=== PATIENT | male | born 1965 | race Caucasian/White ===

== ENCOUNTER 2024-12-17 14:38 | Emergency (ER) | payer OTHER, SELFPAY ==
--- NOTE | ~2024-12-17 | US_ITS ---
CLINICAL HISTORY: immobile, swelling hand, chronic shoulder fracture Left upper extremity venous duplex ultrasound Comparison: None Findings: The visualized deep veins are fully compressible with normal flow. The basilic vein was not able to be compressed due to patient immobility. Impression: No deep vein thrombosis. This document has been electronically signed by: Mirna Ross MD on 12/17/2024 18:35:31
--- NOTE | ~2024-12-17 | XR_ITS ---
CLINICAL HISTORY: swelling Radiographs of the left hand, 3 views Comparison: None Findings: No acute fracture or dislocation. 3 mm well corticated ossific fragment at the base of the 1st proximal phalanx, chronic appearing. No cortical destruction or periostitis to indicate osteomyelitis. Mild degenerative change. Bone mineralization is normal. Vascular calcifications.Soft tissue swelling. Impression: No acute osseous abnormality. Follow up if symptoms persist or worsen. This document has been electronically signed by: Mirna Ross MD on 12/17/2024 17:03:02
[2024-12-17 14:47] VITALS: BP 142/80; PULSE 88; O2SAT 98
[2024-12-17 14:49] VITALS: BP 170/93; PULSE 89; RESP 16; TEMP 36.3; O2SAT 98; BMI 19.4
--- NOTE | 2024-12-17 17:17 | ED.GENADULT ---
HPI - General Adult General Chief complaint: General Medical Stated complaint: From [facility], shoulder injury Time Seen by Provider: 12/17/24 16:01 Source: patient and EMS Mode of arrival: EMS Limitations: no limitations History of Present Illness ED Provider: Lia Castro NP HPI narrative: Patient is a 59-year-old male who presents emergency department via EMS coming from [facility]; [facility]. He states that he injured his left shoulder proximally 8 months ago resulting in fracture/dislocation for which he is awaiting surgical repair that is unfortunately not scheduled until January. He states that since this injury has been experiencing intermittent numbness and tingling to the arm. Yesterday he noticed swelling to his left hand and he brought it to the nurse's attention today. He states the nurse I discussed this with the nurse practitioner at the facility and advised that he be transported to emergency department for further evaluation. He has very limited motion to the arm due to his shoulder pain, he states it is primarily dependent. He is able to move the fingers of the hand and make a fist. He denies any pain to the hand. He denies any recent fevers or chills. He does not recall any apparent injury to the hand. Related Data Allergies Allergy/AdvReac Type Severity Reaction Status Date / Time No Known Allergies Allergy Verified 12/17/24 14:50 Review of Systems Review of Systems: Yes all other systems are reviewed and are negative PMFSH Past Medical History Attestation statement: The following information was validated with the patient. Source: old records reviewed Social History Social History Smoked in Last 30 Days: Yes Use of substances other than those prescribed or required for medical reasons: Yes Substance Use Type: Marijuana Substance Use Frequency: Occasionally Last Used Substance: Weeks (ago) Advance Directives: No Advance Directives Information Provided: Yes Do you have a plan to hurt others: No Plan Physical Exam ED Vital Signs: Vital Signs - 24 hr 12/17/24 14:49 Temperature 97.4 F Pulse Rate 89 Respiratory Rate 16 Blood Pressure 170/93 H Pulse Oximetry 98 Oxygen Delivery Method Room Air BMI result Body Mass Index 19.4 Appearance: Alert.?Oriented to person, place and time. No acute distress.?Normal affect. CVS: Heart sounds normal. Normal heart rate and rhythm.? Pulses normal.?? Respiratory: No respiratory distress.? Lung sounds clear to auscultation bilaterally?? Skin: Skin warm and dry.? Normal skin color.? Extremities: Left shoulder decreased AROM. Full passive range of motion to the left elbow. Full AROM to the left wrist/hand. Localized edema to the hand without erythema or warmth. 2+ radial pulse. Neuro: Moves all extremities spontaneously. Sensation intact bilaterally. Wheelchair-bound Medical Decision Making Medical Decision Making MDM Narrative: Patient is a 59 year old male presents emergency department for evaluation of localized swelling to the left hand that was 1st noticed yesterday in the setting of a chronic fracture/dislocation to the left shoulder over the past 8 months. Has had ongoing intermittent numbness. He does not recall any overt injury. He is primarily chair bound, the arm is kept in a dependent position. I suspect that some degree of the edema may be due to ongoing dependence, and for venous return. The extremity is neurovascularly intact distally. There is no erythema or warmth nor pain to suggest acute infection/septic joint. There was no further extremity edema, shortness of breath tachypnea or hypoxia to suggest CHF as an etiology. Not consistent with arterial occlusion. Will obtain XR to exclude fracture given the intermittent numbness there is some possibility there may have been an injury that he was not aware of, will also obtain venous duplex ultrasound to exclude DVT in the setting of immobility to the arm over the past 8 months. XR negative, venous duplex ultrasound negative. Suspect this is dependent edema, reviewed use of Babatunde bandage, elevation, close outpatient monitoring. Stable for [facility] to [facility] Differential Diagnosis Differential Diagnoses: The differential diagnosis associated with the presentation includes (See narrative above) Admission/Observation Consideration of admission/observation: Escalation of care including admission/observation considered (See narrative above) Independent Interpretation I performed an independent interpretation of an: Plain X-Ray (No acute fracture dislocation) Radiology Impression Discussion of test interpretation with radiology: I have reviewed the radiologist's reading. Radiologist Impression: Radiographs of the left hand, 3 views Comparison: None Findings: No acute fracture or dislocation. 3 mm well corticated ossific fragment at the base of the 1st proximal phalanx, chronic appearing. No cortical destruction or periostitis to indicate osteomyelitis. Mild degenerative change. Bone mineralization is normal. Vascular calcifications.Soft tissue swelling. Impression: No acute osseous abnormality. Follow up if symptoms persist or worsen. Left upper extremity venous duplex ultrasound Comparison: None Findings: The visualized deep veins are fully compressible with normal flow. The basilic vein was not able to be compressed due to patient immobility. Impression: No deep vein thrombosis. Independent Historian Clinical information obtained from an independent historian. History obtained from or confirmed by: EMS External Record Review External record reviewed: Outpatient record Discharge Plan Discharge Clinical Impression: Edema, peripheral Patient Disposition: er [facility] Transfer Details: [facility] Additional Instructions: Edema is likely dependent given primarily immobility of the arm. Babatunde bandage for compression, elevation above the level of the chest as best as possible, outpatient follow-up as scheduled for surgical procedure to the shoulder. X-ray today was without evidence of acute osseous abnormality. Venous duplex ultrasound without evidence of DVT. No redness warmth fevers chills to be concerning for acute infectious process. Referrals: Walt Lang MD [Primary Care Provider] - Print Language: Cook Islander
[2024-12-17 19:45] VITALS: BP 135/86; PULSE 91; RESP 16; TEMP 36.6; O2SAT 98
[2024-12-17 20:40] VITALS: BP 135/86; PULSE 91; RESP 16; TEMP 36.6; O2SAT 98
== END 2024-12-17 20:40 ==
PROVIDERS: Emergency Provider Emergency Medicine; PCP Family Medicine
DX: R60.0 Localized edema (principal)
CPT/HCPCS: 73120; 93971; 99284

== ENCOUNTER → 2024-12-17 16:25 | Outpatient (BNV) | payer OTHER, SELFPAY | PROVIDERS: Emergency Provider Emergency Medicine; PCP Family Medicine; Visit Provider Radiology Diagnostic Radiology | DX: R22.32 Localized swelling, mass and lump, left upper limb (principal); M62.3 Immobility syndrome (paraplegic) | CPT/HCPCS: 73120; 93971 ==

== ENCOUNTER 2025-10-03 16:07 | Inpatient (IN) | payer MEDICARE, MEDICAID, SELFPAY ==
[2025-10-03] VITALS (7 sets, daily range): BP systolic 152–198; BP diastolic 78–100; PULSE 81–86; RESP 16–18; TEMP 36.4–36.7; O2SAT 94–97; BMI 23.2; BMI 22.6
--- NOTE | ~2025-10-03 | US_ITS ---
CLINICAL HISTORY: edema Venous duplex ultrasound bilateral lower extremity Comparison: None provided Findings: The visualized deep veins are fully compressible with normal Doppler color flow and spectral tracings. No popliteal cyst. Right Gonzalez's cyst, 1.8 x 0.5 x 0.8 cm. Left Gonzalez's cyst, 5.1 x 1.4 x 2.6 cm. IMPRESSION: 1. Negative for bilateral lower extremity deep vein thrombosis. This document has been electronically signed by: Jesus Alberto Sargent MD on 10/03/2025 20:08:28
--- NOTE | ~2025-10-03 | XR_ITS ---
CLINICAL HISTORY: edema 2 view chest x-ray Comparison: None provided Findings: Blunting of the left costophrenic angle. Prominence of the pulmonary vasculature. Cardiomegaly. No acute fracture. Reverse left shoulder arthroplasty. IMPRESSION: 1. Small left pleural effusion. 2. CHF. 3. Prior reverse left shoulder arthroplasty. This document has been electronically signed by: Jesus Alberto Sargent MD on 10/03/2025 17:22:54
--- NOTE | 2025-10-03 16:26 | ECG_ITS ---
Test Reason : SWELLING Blood Pressure : */* mmHG Vent. Rate : 83 BPM Atrial Rate : 83 BPM P-R Int : 142 ms QRS Dur : 102 ms QT Int : 404 ms P-R-T Axes : 48 -20 162 degrees QTcB Int : 474 ms Normal sinus rhythm Minimal voltage criteria for LVH, may be normal variant ( Milaca product ) Nonspecific ST and T wave abnormality Prolonged QT Abnormal ECG No previous ECGs available Referred By: Generic ED Physician Electronically Signed By: ORACIO TRIMBLE
[2025-10-03 16:53] LABS: MANUAL DIFF FLAG NO
--- NOTE | 2025-10-03 16:56 | ED_ITS ---
HPI - General Adult General Chief complaint: General Medical Stated complaint: diff breathing Time Seen by Provider: 10/03/25 16:51 Source: patient, EMS and old records reviewed Mode of arrival: EMS Limitations: no limitations History of Present Illness ED Provider: DR. Alvares HPI narrative: 60-year-old [facility] [place] care brought in by EMS for increased difficulty breathing mostly when he lay supine at night and he required 2 put 2 pillows under his head, patient also noted swelling and edema in bilateral lower extremity, exertional shortness of breath, no chest pain, no weakness, no numbness. No fever, no chills, no cough. Related Data Allergies Allergy/AdvReac Type Severity Reaction Status Date / Time No Known Allergies Allergy Verified 10/03/25 16:20 Review of Systems 2 Review of Systems: all other systems are reviewed and are negative Constitutional: Reports as per HPI and Reports no additional constitutional complaints Eyes: Reports as per HPI and Reports no additional eye complaints Reports system reviewed and no additional complaints, except as documented Cardiovascular: Reports as per HPI and Reports no additional cardiovascular complaints Respiratory: Reports as per HPI and Reports no additional respiratory complaints Gastrointestinal: Reports as per HPI and Reports no additional gastrointestinal complaints Genitourinary: Reports no additional female genitourinary complaints Musculoskeletal: Reports no additional musculoskeletal complaints Skin/Breast: Reports system reviewed and no additional complaints, except as docu Psychiatric: Reports no additional psychiatric complaints Endocrine: Reports no additional endocrine complaints Hematologic/Lymphatic: Reports no additional hematologic/lymphatic complaints Allergic/Immunologic: Reports no additional allergic/immunologic complaints Reports system reviewed and no additional complaints, except as documented and Reports Abnormal speech present [facility] Social History Social History Alcohol intake: never Smoked in Last 30 Days: Yes Use of substances other than those prescribed or required for medical reasons: No Substance Use Type: Marijuana Advance Directives: No Advance Directives Information Provided: No Physical Exam ED Vital Signs: Vital Signs - 24 hr 10/03/25 16:17 10/03/25 17:53 10/03/25 18:02 Temperature 98.0 F 97.8 F Pulse Rate 86 85 Respiratory Rate 18 18 Blood Pressure 182/97 H 181/85 H 181/85 H Pulse Oximetry 97 95 Oxygen Delivery Method Room Air Room Air BMI result Body Mass Index 23.2 Vital signs have been reviewed and appear to be correct. Blood pressure elevated. Heart rate normal. Respiratory rate normal. Temperature normal. Oxygen saturation normal. Appearance: Alert. Oriented X3. No acute distress. Head: Normal external exam. Normocephalic. Atraumatic. No Linder signs noted. No raccoon eyes noted Eyes: PERRLA. EOMI. Conjunctiva and sclera normal. Eyelids normal. ENT: TM's Normal. Pharynx normal. Uvula midline. Moist mucous membranes. No trismus noted. No drooling noted. No muffled voice noted. Neck: Normal inspection. Neck supple. FROM. No adenopathy. Thyroid Normal. No meningeal signs. No neck mass noted. CVS: Normal heart rate and rhythm, bilateral lower lung field rales. Respiratory: No respiratory distress. Painless inspiration. Breath sounds normal. No wheezes/rales/rhonchi noted. No accessory muscle usage noted or decreased air movement noted. Abdomen: Soft and nontender. Bowel sounds normal in all 4 quadrants. No distention noted. No organomegaly noted. No visible injury noted. Back: No CVA tenderness. Full range of motion noted. Skin: Skin warm and dry. Normal skin color. Normal skin turgor. No rashes/lesions/lacerations noted. Extremities: Plus two lower extremity edema. Extremities exhibit normal range of motion. Extremities nontender. Neuro: Oriented X 3. Cranial nerve exam: II-XII are grossly intact No motor deficit. No sensory deficit. Reflexes normal. Course Reevaluation(s) Reevaluation #1: 60-year-old male came in with CHF symptoms normally patient is not taking Lasix was given Lasix and nitro in the ED with some subjective improvement. Patient will need to be hospitalized for further diuresis and cardiology evaluation. Time: 18:17 Medications Administered Discontinued Medications Generic Name Dose Route Start Last Admin Trade Name Freq PRN Reason Stop Dose Admin Furosemide 40 mg 10/03/25 17:05 10/03/25 18:02 Furosemide 100 Mg/10 Ml Vial IVPUSH 10/03/25 17:06 40 mg ONCE ONE Administration Protocol Nitroglycerin 1 inch 10/03/25 17:05 10/03/25 17:59 Nitroglycerin 2 % Oint 1 Gm Packet TRANSDERMA 10/03/25 17:06 1 inch ONCE ONE Administration Medical Decision Making Differential Diagnosis Differential Diagnoses: The differential diagnosis associated with the presentation includes ( CHF, ACS, pneumonia, pneumothorax, pleural effusion, electrolyte derangement, severe anemia.) Admission/Observation Consideration of admission/observation: Escalation of care including admission/observation considered Consult Healthcare Provider Management of the patient was discussed with: Hospitalist ( Dr. Dacosta) Lab Data MDM Lab Attestation statement: I reviewed the patient's lab results. 10/03/25 16:45 10/03/25 16:45 Labs: Lab Results 10/03/25 Range/Units 16:45 WBC 5.9 (4.8-10.8) X10*3/uL RBC 4.07 L (4.60-5.80) X10*6/uL Hgb 12.2 L (14.0-18.0) g/dl Hct 37.3 L (42.0-52.0) % MCV 91.6 (80.0-98.0) fL MCH 30.0 (27.0-33.0) pg MCHC 32.7 (31.0-36.0) g/dl RDW 13.4 (11.0-16.0) % Plt Count 264 (160-400) X10*3/uL MPV 10.7 (9.4-12.4) fL Immature Gran % (Auto) 0.2 (0.0-0.4) % Neut % (Auto) 67.5 (45-73) % Lymph % (Auto) 19.9 L (20-40) % Glynn % (Auto) 7.9 (2-11) % Eos % (Auto) 3.5 (0-4) % Baso % (Auto) 1.0 (0-2) % Lymph # (Auto) 1.2 (1.2-4.9) X10*3/uL Glynn # (Auto) 0.5 (0.1-1.2) X10*3/uL Eos # (Auto) 0.2 (0.0-0.4) X10*3/uL Baso # (Auto) 0.1 (0.0-0.2) X10*3/uL Abs Immat Gran (auto) 0.01 (0.00-0.03) X10*3/uL Absolute Neuts (auto) 4.0 (2.0-8.3) x10*3/uL Absolute Nucleated RBC 0.000 (0.0-0.012) X10*3/uL Nucleated RBC % (auto) 0.0 (0.0-0.2) /100WBC Hold Blue Top SEE NOTE Sodium 141 (135-145) mmol/L Potassium 4.0 (3.3-5.1) mmol/L Chloride 110 H (96-108) mmol/L Carbon Dioxide 26 (22-29) mmol/L Anion Gap 9 L (12-20) BUN 15 (9-16) mg/dL Creatinine 0.76 (0.5-1.4) mg/dL Estim Creat Clear Calc 105.3 Estimated GFR > 60 Random Glucose 162 H (60-115) mg/dL Calcium 7.9 L (8.4-10.2) mg/dL Total Bilirubin 0.4 (0.0-1.0) mg/dL AST 30 (5-37) U/L ALT 9 (0-40) U/L Alkaline Phosphatase 144 H (39-117) U/L Troponin I High Sens 42.5 H (<3.5-35.0) ng/L NT-Pro-B Natriuret Pep 78639.2 H (<300) pg/mL Total Protein 4.9 L (6.5-8.0) g/dL Albumin 2.4 L (3.5-5.0) g/dL Independent Interpretation I performed an independent interpretation of an: Plain X-Ray ( chest: CHF.) Radiology Impression Discussion of test interpretation with radiology: I have reviewed the radiologist's reading. Critical Care Time Critical Care Time Critical Care Time: Yes Total Critical Care Time: 60 Attestation: The patient was critically ill with a high probability of imminent or life- threatening deterioration. I spent greater than 30 minutes of discontinuous time evaluating the patient, delivering critical care at the bedside, discussing evaluating data with consultants. Critical care time does not include time spent performing separately billable procedures or teaching. Time spent performing critical care was 60 minutes. Discharge Plan Discharge Clinical Impression: Congestive heart failure Patient Disposition: Admitted As Inpatient Print Language: Uzbek
--- OUTSIDE RECORDS SUMMARY | 2025-10-03 16:58 | XMS_ITS | Encounter Summary ---
Author Organization [facility] Address [address] [place] [address] Care Team Providers Care Vegetable Thinner Name Role Phone Ac Garcia MD Primary Care Provider Encounter Details Date Type Department Care Team (Late st Contact Info) Description 01/20/2025 Lab Requisition [facility] - Main Lab [address] [facility] [place] [address] Walt Lang MD [address] [place] [address] [address], [phone] Essential (primary) hypertension; Type 2 diabetes mellitus without complications (CMS/HCC V24, CMS/HCC V28) Social History Tobacco Use Types Packs/Day Years Used Date Smoking Tobacco: Never Assessed Sex and Gender Information Value Date Recorded Sex Assigned at Not on file Legal Sex Male 6:32 PM EST Gender Identity Not on file Sexual Orientation Not on file documented as of this encounter Plan of Treatment Not on file documented as of this encounter Visit Diagnoses Diagnosis Essential (primary) hypertension Unspecified essential hypertension Type 2 diabetes mellitus without complications (CMS/HCC V24, CMS/HCC V28) documented in this encounter Care Teams Vegetable Thinner Relationship Specialty Start Date End Date Ac Garcia MD [address] [place] [phone] PCP - General Internal Medicine 01/20/25 documented as of this encounter
--- OUTSIDE RECORDS SUMMARY | 2025-10-03 16:58 | XMS_ITS | Clinical Summary ---
Author Organization [facility] Address [address] [place] [address] Care Team Providers Care Maintenance Dispatcher Name Role Phone Ac Garcia MD Primary Care Provider Allergies No known active allergies Medications Medication Sig Dispensed Refills Start Date End Date Status ibuprofen (ADVIL,MOTRIN) 400 MG tablet Take 1 tablet (400 mg total) by mouth every 6 (six) hours as needed for pain. 30 tablet 0 04/12/2015 Active Insulin Pen Needle (Pen [place]) 30G X 5 MM MISC 1 Device by Does not apply route 2 (two) times a day after meals. 60 each 11 12/23/2023 Active Continuous Blood Gluc Professor In Family Studies (FreeStyle Niurka 2 [place]) KEVIN 1 each by Does not apply route daily. 1 each 0 02/26/2024 Active Continuous Glucose Sensor (FreeStyle Niurka 2 Sensor) MISC 1 patch by Subdermal route every 14 (fourteen) days. dX: E 11.9 4 each 10 05/02/2024 Active Active Problems Problem Noted Date Diagnosed Date Type 1 diabetes mellitus with diabetic polyneuro mariam 12/23/2023 Social History Tobacco Use Types Packs/Day Years Used Date Smoking Tobacco: Every Day Cigarettes 1 Alcohol Use Standard Drinks/Week Comments Yes 0 (1 standard drink = 0.6 oz pur e alcohol) beer a few times a week Sex and Gender Information Value Date Recorded Sex Assigned at Not on file Gender Identity Not on file Sexual Orientation Not on file Job Start Date Occupation Industry Not on file Not on file Not on file Last Filed Vital Signs Vital Sign Reading Time Taken Comments Blood Pressure 164/90 01/21/2024 12:04 PM EDT Pulse 98 01/21/2024 12:04 PM EDT Temperature 36.3 C (97.4 F) 12/23/2023 1:26 PM EST Respiratory Rate 16 04/12/2015 4:55 PM EDT Oxygen Saturation 99% 01/21/2024 12:04 PM EDT Inhaled Oxygen Concentration - - Weight 60.1 kg (132 lb 9.6 oz) 01/21/2024 12:04 PM EDT Height 177.8 cm (5' 10 ) 04/12/2015 2:29 PM EDT Body Mass Index 19.03 04/12/2015 2:29 PM EDT Plan of Treatment Health Maintenance Due Date Last Done Comments Hepatitis C Screening 1965 COVID-19 Vaccine (#1) 1965 Pneumococcal Vaccine (1 of 2 - PCV) 01/18/1970 Depression Screening 1976 Diabetes: Eye Exam (No Retinopathy) 01/18/1982 Diabetes: Foot Exam 01/18/1982 Diabetes: Microalbumin Test 01/18/1982 Preventative Health Evaluation 01/18/1982 DTap / Tdap / Td (1 - Tdap) 01/18/1983 Colon Cancer Screening (Colonoscopy) 01/18/2009 Shingrix-Zoster Vaccine (1 of 2) 01/18/2014 Hemoglobin A1C Due 07/23/2024 01/21/2024 Influenza Vaccine (#1) 2025 RSV Adult > 60+ Yrs or Pregn ant (1 - 1-dose 75+ series) 01/18/2039 Hepatitis B Vaccines Aged Out No long er eligible based on patient's age to complete this topic RSV Ped < 20 months Aged Out No longe r eligible based on patient's age to complete this topic Care Teams Maintenance Dispatcher Relationship Specialty Start Date End Date Ac Garcia MD PCP - General Family Medicine 12/23/23
--- OUTSIDE RECORDS SUMMARY | 2025-10-03 16:58 | XMS_ITS | Encounter Summary ---
Author Organization [facility] Address [address] [place] [address] Care Team Providers Care Hospice Music Therapist Name Role Phone Ac Garcia MD Primary Care Provider [phone] Encounter Details Date Type Department Care Team (Late st Contact Info) Description 09/23/2024 Lab Requisition [facility] - Main Lab [address] [facility] [place] [address] Walt Lang MD 38 [facility] [address] [place], [phone] Type 2 diabetes mellitus without complications (CMS/HCC [...] on file documented as of this encounter Procedures Procedure Name Priority Date/Time Associated Diagnosis Comments LIPID PANEL WITH REFLEX TO DIRECT LDL Routine 09/24/2024 6:37 AM EST Type 2 diabetes mellitus without complications (CMS/HCC) CBC WITH AUTO DIFFERENTIAL Routine 09/24/2024 6:37 AM EST Type 2 diabetes mellitus without complications (CMS/HCC) CBC AND DIFFERENTIAL Routine 09/24/2024 6:37 AM EST Type 2 diabetes mellitus without complications (CMS/HCC) HEMOGLOBIN A1C Routine 09/24/2024 6:37 AM EST Type 2 diabetes mellitus without complications (CMS/HCC) COMPREHENSIVE METABOLIC PANEL Routine 09/24/2024 6:37 AM EST Type 2 diabetes mellitus without complications (CMS/HCC) documented in this encounter Results * (ABNORMAL) CBC auto differential (09/24/2024 6:37 AM EST) WBC 6.3 4.8 - 10.8 K/mcL LAB HEMETOLOGY METHOD 09/24/2024 11:44 AM [facility] LAB RBC 3.80(L) 4.50 - 5.50 M/mcL LAB HEMETOLOGY METHOD 09/24/2024 11:44 AM [facility] LAB Hemoglobin 11.9(L) 13.5 - 17.5 g/dL LAB HEMETOLOGY METHOD 09/24/2024 11:44 AM [facility] LAB Hematocrit 36.3(L) 42.0 - 54.0 % LAB HEMETOLOGY METHOD 09/24/2024 11:44 AM [facility] LAB MCV 95.0 79.0 - 98.0 FL LAB HEMETOLOGY METHOD 09/24/2024 11:44 AM [facility] LAB MCH 31.2 27.0 - 32.0 pcg LAB HEMETOLOGY METHOD 09/24/2024 11:44 AM [facility] LAB MCHC 32.8 32.0 - 37.0 g/dL LAB HEMETOLOGY METHOD 09/24/2024 11:44 AM [facility] LAB RDW 14.5 11.0 - 15.0 % LAB HEMETOLOGY METHOD 09/24/2024 11:44 AM [facility] LAB Platelets 457(H) 130 - 400 K/mcL LAB HEMETOLOGY METHOD 09/24/2024 11:44 AM [facility] LAB MPV 10.2 7.0 - 11.0 FL LAB HEMETOLOGY METHOD 09/24/2024 11:44 AM [facility] LAB NRBC 0.0 <1.0 % LAB HEMETOLOGY METHOD 09/24/2024 11:44 AM [facility] LAB NRBC Absolute 0.00 <0.10 K/mcL LAB HEMETOLOGY METHOD 09/24/2024 11:44 AM [facility] Neutrophils Relative 66.7 % LAB HEMETOLOGY METHOD 09/24/2024 11:44 AM [facility] Lymphocytes Relative 14.9 % LAB HEMETOLOGY METHOD 09/24/2024 11:44 AM [facility] Monocytes Relative 12.6 % LAB HEMETOLOGY METHOD 09/24/2024 11:44 AM [facility] Eosinophils Relative 4.0 % LAB HEMETOLOGY METHOD 09/24/2024 11:44 AM [facility] Basophils Relative 1.3 % LAB HEMETOLOGY METHOD 09/24/2024 11:44 AM [facility] Immature Granulocytes Relative 0.5 % LAB HEMETOLOGY METHOD 09/24/2024 11:44 AM [facility] Neutrophils Absolute 4.17 1.50 - 7.00 K/mcL LAB HEMETOLOGY METHOD 09/24/2024 11:44 AM [facility] Lymphocytes Absolute 0.93(L) 1.00 - 5.00 K/mcL LAB HEMETOLOGY METHOD 09/24/2024 11:44 AM [facility] Monocytes Absolute 0.79 0.20 - 1.00 K/mcL LAB HEMETOLOGY METHOD 09/24/2024 11:44 AM [facility] Eosinophils Absolute 0.25 0.00 - 0.50 K/mcL LAB HEMETOLOGY METHOD 09/24/2024 11:44 AM [facility] Basophils Absolute 0.08 0.00 - 0.20 K/mcL LAB HEMETOLOGY METHOD 09/24/2024 11:44 AM EST [facility] Immature Granulocytes Absolute 0.03 0.00 - 0.03 K/mcL LAB HEMETOLOGY METHOD 09/24/2024 11:44 AM EST [facility] Blood Venous blood specimen / Unknown Venipuncture / Unknown 09/24/2024 6:37 AM EST 09/24/2024 10:28 AM EST Walt Lang MD LAB BLOOD ORDERABLES Final Resul t Performing Organization Address [facility]/ZIP Co de Phone Number [facility] [address] [place] [address], [place] [phone] * (ABNORMAL) Hemoglobin A1c (09/24/2024 6:37 AM EST) Hemoglobin A1C 7.7(H) <6.5 % LAB CHEMISTRY METHOD 09/24/2024 2:26 PM EST [facility] Mean Bld Glu Estim. 174 mg/dL LAB CHEMISTRY METHOD 09/24/2024 2:26 PM EST [facility] Blood Venous blood specimen / Unknown Venipuncture / Unknown 09/24/2024 6:37 AM EST 09/24/2024 10:28 AM EST us Walt Lang MD LAB BLOOD ORDERABLES Final Resul t Performing Organization Address [facility]/ZIP Co de Phone Number [facility] [address] [place] [address], [place] [phone] * (ABNORMAL) Lipid panel with reflex to direct LDL (09/24/2024 6:37 AM EST) Cholesterol 287(H) 0 - 200 mg/dL LAB CHEMISTRY METHOD 09/24/2024 12:46 PM EST [facility] Triglycerides 197(H) 0 - 150 mg/dL LAB CHEMISTRY METHOD 09/24/2024 12:46 PM EST [facility] HDL 56 >=40 mg/dL LAB CHEMISTRY METHOD 09/24/2024 12:46 PM [facility] LDL Calculated 192(H) 0 - 100 mg/dL LAB CHEMISTRY METHOD 09/24/2024 12:46 PM [facility] VLDL Cholesterol Patel 39.4 mg/dL LAB CHEMISTRY METHOD 09/24/2024 12:46 PM [facility] Non HDL Chol. (LDL+VLDL) 231(H) <145 mg/dL LAB CHEMISTRY METHOD 09/24/2024 12:46 PM [facility] Chol/HDL Ratio 5.1(H) 0.0 - 4.4 LAB CHEMISTRY METHOD 09/24/2024 12:46 PM [facility] Blood Venous blood specimen / Unknown Venipuncture / Unknown 09/24/2024 6:37 AM EST 09/24/2024 10:28 AM EST us Walt Lang MD LAB BLOOD ORDERABLES Final Resul t [facility] [address] [place] [address], [place] [phone] * (ABNORMAL) Comprehensive metabolic panel (09/24/2024 6:37 AM EST) Sodium 136 133 - 145 mmol/L LAB CHEMISTRY METHOD 09/24/2024 12:49 PM [facility] Potassium 4.1 3.5 - 5.5 mmol/L LAB CHEMISTRY METHOD 09/24/2024 12:49 PM [facility] Chloride 103 96 - 110 mmol/L LAB CHEMISTRY METHOD 09/24/2024 12:49 PM [facility] CO2 27 21 - 32 mmol/L LAB CHEMISTRY METHOD 09/24/2024 12:49 PM [facility] Anion Gap 6 3 - 11 LAB CHEMISTRY METHOD 09/24/2024 12:49 PM [facility] Glucose 239(H) 70 - 100 mg/dL LAB CHEMISTRY METHOD 09/24/2024 12:49 PM [facility] BUN 13 5 - 25 mg/dL LAB CHEMISTRY METHOD 09/24/2024 12:49 PM [facility] Creatinine 0.37(L) 0.70 - 1.30 mg/dL LAB CHEMISTRY METHOD 09/24/2024 12:49 PM [facility] LAB eGFR 128 >=60 mL/min/1. 73m2 LAB CHEMISTRY METHOD 09/24/2024 12:49 PM [facility] Comment:Calculation based on the Chronic Kidney Disease Epidemiology Collaboration (CKD-EPI) equation refit without adjustment for race. BUN/Creatinine Ratio 35.1 LAB CHEMISTRY METHOD 09/24/2024 12:49 PM [facility] Calcium 8.4(L) 8.5 - 10.5 mg/dL LAB CHEMISTRY METHOD 09/24/2024 12:49 PM [facility] AST (SGOT) 17 10 - 42 unit/L LAB CHEMISTRY METHOD 09/24/2024 12:49 PM [facility] ALT (SGPT) 21 10 - 60 unit/L LAB CHEMISTRY METHOD 09/24/2024 12:49 PM [facility] Alkaline Phosphatase 206(H) 42 - 121 unit/L LAB CHEMISTRY METHOD 09/24/2024 12:49 PM [facility] Total Protein 5.5(L) 6.0 - 8.0 g/dL LAB CHEMISTRY METHOD 09/24/2024 12:49 PM [facility] Albumin 2.3(L) 3.2 - 5.0 g/dL LAB CHEMISTRY METHOD 09/24/2024 12:49 PM [facility] Total Bilirubin 0.3 0.0 - 1.4 mg/dL LAB CHEMISTRY METHOD 09/24/2024 12:49 PM [facility] Blood Venous blood specimen / Unknown Venipuncture / Unknown 09/24/2024 6:37 AM EST 09/24/2024 10:28 AM EST us Walt Lang MD LAB BLOOD ORDERABLES Final Resul t [facility] ([facility] [address] [place] [address], [place] [phone] documented in this encounter Visit Diagnoses Diagnosis Type 2 diabetes mellitus without complications (CMS/HCC V24, CMS/HCC V28) documented in this encounter Care Teams Hospice Music Therapist Relationship Specialty Start Date End Date Ac Garcia MD [address] [place] [phone] PCP - General Internal Medicine 01/20/25 documented as of this encounter
--- OUTSIDE RECORDS SUMMARY | 2025-10-03 16:58 | XMS_ITS | Clinical Summary ---
Author Organization [address] Address [address] [place] [phone] Phone Care Team Providers Care Planning Rn Name Role Phone Ac Garcia MD Primary Care Provider [phone] Social History Tobacco Use Types Packs/Day Years Used Date Smoking Tobacco: Never Assessed Sex and Gender Information Value Date Recorded Sex Assigned at Not on file Legal Sex Male 6:32 PM EST Gender Identity Not on file Sexual Orientation Not on file Last Filed Vital Signs Vital Sign Reading Time Taken Comments Blood Pressure 164/90 01/21/2024 12:04 PM EDT Pulse 98 01/21/2024 12:04 PM EDT Temperature - - Respiratory Rate - - Oxygen Saturation - - Inhaled Oxygen Concentration - - Weight 60.1 kg (132 lb 9.6 oz) 01/21/2024 12:04 PM EDT Height - - Body Mass Index - - Plan of Treatment Health Maintenance Due Date Last Done Comments Colorectal Cancer Screening: Colonoscopy 1965 Diabetes: Annual Foot Exam 01/18/1974 Diabetes: Annual Retina Eye Exam 01/18/1974 Pneumococcal Vaccine: 50+ Ye ars (1 of 2 - PCV) 01/18/1983 RSV Immunization Adult Patie nts (1 - Risk 50-74 years 1-dose series) 01/18/2014 Zoster Vaccines (1 of 2) 01/18/2014 Diabetes: Annual Urine Albumin-Creatinine Ratio (uACR) 06/10/2024 HIV Screening 06/10/2024 Hepatitis C Screening 06/10/2024 Social Influencers of Health Screening 06/10/2024 Depression Screening 11/12/2024 Diabetes: Blood Sugar Contro l Test (HGBA1C) 03/24/2025 09/24/2024 COVID-19 Vaccine (2024-2 6 season) 2025 Influenza Vaccine (#1) 2025 Diabetes: Annual GFR (Glomer ular Filtration Rate) 09/24/2025 09/24/2024 Hypertension/CHF/CAD Annual BMP Blood Test 09/24/2025 09/24/2024 Cholesterol Screening (Lipid Panel) 09/24/2029 09/24/2024 DTaP,Tdap,and Td Vaccines (2 - Td or Tdap) 05/26/2034 05/26/2024 HIB Vaccines Aged Out No longer eligi ble based on patient's age to complete this topic HPV Vaccines Aged Out No longer eligi ble based on patient's age to complete this topic Hepatitis A Vaccines Aged Out No long er eligible based on patient's age to complete this topic Hepatitis B Vaccines Aged Out No long er eligible based on patient's age to complete this topic IPV Vaccines Aged Out No longer eligi ble based on patient's age to complete this topic MMR Vaccines Aged Out No longer eligi ble based on patient's age to complete this topic Meningococcal ACWY Vaccine Aged Out N o longer eligible based on patient's age to complete this topic Meningococcal B Vaccine Aged Out No l onger eligible based on patient's age to complete this topic RSV Immunization Patients Un mary 20 months Aged Out No longer eligible b ased on patient's age to complete this topic Varicella Vaccines Aged Out No longer eligible based on patient's age to complete this topic Procedures Procedure Name Priority Date/Time Associated Diagnosis Comments COMPREHENSIVE METABOLIC PANEL Routine 09/24/2024 6:37 AM EST Type 2 diabetes mellitus without complications (CMS/HCC) HEMOGLOBIN A1C Routine 09/24/2024 6:37 AM EST Type 2 diabetes mellitus without complications (CMS/HCC) LIPID PANEL WITH REFLEX TO DIRECT LDL Routine 09/24/2024 6:37 AM EST Type 2 diabetes mellitus without complications (CMS/HCC) from Last 3 Months or Most Recently Relevant to Health Maintenance Results * (ABNORMAL) Lipid panel with reflex to direct LDL (09/24/2024 6:37 AM EST) Cholesterol 287(H) 0 - 200 mg/dL LAB CHEMISTRY METHOD 09/24/2024 12:46 PM [facility] Triglycerides 197(H) 0 - 150 mg/dL LAB CHEMISTRY METHOD 09/24/2024 12:46 PM EST [facility] HDL 56 >=40 mg/dL LAB CHEMISTRY METHOD 09/24/2024 12:46 PM [facility] LDL Calculated 192(H) 0 - 100 mg/dL LAB CHEMISTRY METHOD 09/24/2024 12:46 PM [facility] VLDL Cholesterol Patel 39.4 mg/dL LAB CHEMISTRY METHOD 09/24/2024 12:46 PM [facility] Non HDL Chol. (LDL+VLDL) 231(H) <145 mg/dL LAB CHEMISTRY METHOD 09/24/2024 12:46 PM [facility] Chol/HDL Ratio 5.1(H) 0.0 - 4.4 LAB CHEMISTRY METHOD 09/24/2024 12:46 PM [facility] Blood Venous blood specimen / Unknown Venipuncture / Unknown 09/24/2024 6:37 AM EST 09/24/2024 10:28 AM EST us Walt Lang MD LAB BLOOD ORDERABLES Final Resul t [facility] [address] [place] [address], * (ABNORMAL) Hemoglobin A1c (09/24/2024 6:37 AM EST) Hemoglobin A1C 7.7(H) <6.5 % LAB CHEMISTRY METHOD 09/24/2024 2:26 PM EST [facility] Mean Bld Glu Estim. 174 mg/dL LAB CHEMISTRY METHOD 09/24/2024 2:26 PM [facility] Blood Venous blood specimen / Unknown Venipuncture / Unknown 09/24/2024 6:37 AM EST 09/24/2024 10:28 AM EST us Walt Lang MD LAB BLOOD ORDERABLES Final Resul t [facility] [address] [place] [address], * (ABNORMAL) Comprehensive metabolic panel (09/24/2024 6:37 AM EST) Sodium 136 133 - 145 mmol/L LAB CHEMISTRY METHOD 09/24/2024 12:49 PM [facility] Potassium 4.1 3.5 - 5.5 mmol/L LAB CHEMISTRY METHOD 09/24/2024 12:49 PM [facility] Chloride 103 96 - 110 mmol/L LAB CHEMISTRY METHOD 09/24/2024 12:49 PM [facility] CO2 27 21 - 32 mmol/L LAB CHEMISTRY METHOD 09/24/2024 12:49 PM [facility] Anion Gap 6 3 - 11 LAB CHEMISTRY METHOD 09/24/2024 12:49 PM [facility] Glucose 239(H) 70 - 100 mg/dL LAB CHEMISTRY METHOD 09/24/2024 12:49 PM [facility] BUN 13 5 - 25 mg/dL LAB CHEMISTRY METHOD 09/24/2024 12:49 PM [facility] Creatinine 0.37(L) 0.70 - 1.30 mg/dL LAB CHEMISTRY METHOD 09/24/2024 12:49 PM [facility] eGFR 128 >=60 mL/min/1. 73m2 LAB CHEMISTRY METHOD 09/24/2024 12:49 PM [facility] Comment:Calculation based on the Chronic Kidney Disease Epidemiology Collaboration (CKD-EPI) equation refit without adjustment for race. BUN/Creatinine Ratio 35.1 LAB CHEMISTRY METHOD 09/24/2024 12:49 PM [facility] Calcium 8.4(L) 8.5 - 10.5 mg/dL LAB CHEMISTRY METHOD 09/24/2024 12:49 PM [facility] AST (SGOT) 17 10 - 42 unit/L LAB CHEMISTRY METHOD 09/24/2024 12:49 PM [facility] ALT (SGPT) 21 10 - 60 unit/L LAB CHEMISTRY METHOD 09/24/2024 12:49 PM [facility] Alkaline Phosphatase 206(H) 42 - 121 unit/L LAB CHEMISTRY METHOD 09/24/2024 12:49 PM [facility] Total Protein 5.5(L) 6.0 - 8.0 g/dL LAB CHEMISTRY METHOD 09/24/2024 12:49 PM [facility] Albumin 2.3(L) 3.2 - 5.0 g/dL LAB CHEMISTRY METHOD 09/24/2024 12:49 PM [facility] Total Bilirubin 0.3 0.0 - 1.4 mg/dL LAB CHEMISTRY METHOD 09/24/2024 12:49 PM [facility] Blood Venous blood specimen / Unknown Venipuncture / Unknown 09/24/2024 6:37 AM EST 09/24/2024 10:28 AM EST us Walt Lang MD LAB BLOOD ORDERABLES Final Resul t [facility] [address] [place] [address], from Last 3 Months or Most Recently Relevant to Health Maintenance Insurance [facility] [place] [phone] [place] Care Teams Planning Rn Relationship Specialty Start Date End Date Ac Garcia MD [address] [place] [phone] PCP - General Internal Medicine 01/20/25
[2025-10-03 17:00] LABS: Hematocrit 37.3 % (42.0-52.0); Hemoglobin 12.2 g/dl (14.0-18.0); Imm Gran Abs Auto 0.01 X10*3/uL (0.00-0.03); Imm Gran Pct Auto 0.2 % (0.0-0.4); Lymphocytes Absolute Auto 1.2 X10*3/uL (1.2-4.9); Mean Corpuscular HGB Conc 32.7 g/dl (31.0-36.0); Mean Corpuscular Hemoglobin 30.0 pg (27.0-33.0); Mean Corpuscular Volume 91.6 fL (80.0-98.0); NRBC Abs Auto 0.000 X10*3/uL (0.0-0.012); NRBC Pct Auto 0.0 /100WBC (0.0-0.2); Platelet Count 264 X10*3/uL (160-400); Red Blood Count 4.07 X10*6/uL (4.60-5.80); White Blood Count 5.9 X10*3/uL (4.8-10.8)
[2025-10-03 17:41] LABS: Alanine Aminotransferase 9 U/L (0-40); Albumin Level 2.4 g/dL (3.5-5.0); Alkaline Phosphatase 144 U/L (39-117); Anion Gap 9 (12-20); Aspartate Amino Transferase 30 U/L (5-37); Blood Urea Nitrogen 15 mg/dL (9-16); Calcium 7.9 mg/dL (8.4-10.2); Carbon Dioxide 26 mmol/L (22-29); Chloride 110 mmol/L (96-108); Creatinine Clr Calc Pharmacy 105.3; Estimated Glomerular Filt Rate > 60; Potassium 4.0 mmol/L (3.3-5.1); Sodium 141 mmol/L (135-145); Total Protein 4.9 g/dL (6.5-8.0); Troponin-I High Sensitivity 42.5 ng/L (<3.5-35.0)
[2025-10-03] MEDS: Nitroglycerin 2 % Oint 1 GM Packet 1 INCH TRANSDERMA (17:59)
[2025-10-03] MEDS: Furosemide 100 MG/10 ML VIAL 40 MG IVPUSH ×2 (18:02→18:59)
[2025-10-03 18:28] LABS: Resp Syncy Virus RNA Qual PCR NEGATIVE (Negative); SARS COV2 PCR INHOUSE NEGATIVE (Negative)
--- NOTE | 2025-10-03 18:34 | PC.NURSE ---
Pt continues to deny CP and headache following meds. Is aware of plan for admission.
--- NOTE | 2025-10-03 18:47 | PM.IMHP ---
History of Present Illness Date of Service: 10/03/25 Chief Complaint: Shortness of breath and edema 60-year-old male with past medical history significant for heart failure, who presented to the hospital complaining of worsening shortness of breath and edema has been going on for the past week, patient had a group home facility, mentioned that he requires to use pillows to avoid getting shortness of breath. Patient also mentions ascending lower extremity edema. Patient states that he was previously seen by her doctor, however did not take medications prescribed to him for his heart disease. In the ED chest x-ray with CHF and small left pleural effusion, on labs proBNP 33876. Patient admitted for heart failure exacerbation. Review of Systems Review of Systems: Yes all other systems are reviewed and are negative [facility] Social History Alcohol intake: never Smoked in Last 30 Days: Yes Use of substances other than those prescribed or required for medical reasons: No Substance Use Type: Marijuana Advance Directives: No Advance Directives Information Provided: No Meds Allergies Allergy/AdvReac Type Severity Reaction Status Date / Time No Known Allergies Allergy Verified 10/03/25 16:20 Active Medications: Current Medications Acetaminophen (Acetaminophen 325 Mg Tablet) 650 mg PO Q6H PRN PRN Reason: Pain, Mild 1-3,fever,headache Calcium Carbonate (Calcium Carbonate 750 Mg Tab.Chew) 750 mg PO Q4H PRN PRN Reason: Heartburn Furosemide (Furosemide 100 Mg/10 Ml Vial) 100 mg IVPUSH BID SO; Protocol Heparin Sodium (Porcine) (Heparin Sodium,Porcine 5,000 Unit/Ml Vial) 5,000 unit SUBCUT Q12H [facility] Magnesium Hydroxide (Milk Of Magnesia 30 Ml Oral.Susp) 30 ml PO DAILY PRN PRN Reason: Constipation Melatonin (Melatonin 3 Mg Tablet) 6 mg PO BEDTIME PRN PRN Reason: Insomnia Ondansetron HCl (Ondansetron Hcl 4 Mg/2 Ml Vial) 4 mg IVPUSH Q8H PRN PRN Reason: Nausea and Vomiting Sodium Chloride (0.9 % Sodium Chloride Flush 3 Ml Syringe) 3 ml IVFLUSH QSHIFT SO Physical Exam Vital Signs and Narrative: Vital Signs: Last Vital Signs Temp 97.8 F 10/03/25 17:53 Pulse 82 10/03/25 18:30 Resp 18 10/03/25 18:30 BP 189/99 H 10/03/25 18:30 Pulse Ox 94 10/03/25 18:30 O2 Del Method Room Air 10/03/25 18:30 BMI result Body Mass Index 23.2 General: AxOx3, No acute distress Head: AT/NC ENT: Moist mucous membranes Neck: supple CVS; RRR, S1 S2 normal Lungs: Bilateral rales Abd: Soft non tender, non distended Ext: No edema and no calf tenderness MSK: moving all 4 limbs Skin: Sacral edema and lower extremity edema Psych: Cooperative with exam Neurology: no focal deficit Results Labs 10/03/25 16:45 10/03/25 16:45 Labs: Laboratory Results - last 24 hr 10/03/25 16:45 MCV 91.6 MCH 30.0 MCHC 32.7 RDW 13.4 Plt Count 264 MPV 10.7 Immature Gran % (Auto) 0.2 Neut % (Auto) 67.5 Lymph % (Auto) 19.9 L [place] % (Auto) 7.9 Eos % (Auto) 3.5 Baso % (Auto) 1.0 Lymph # (Auto) 1.2 [place] # (Auto) 0.5 Eos # (Auto) 0.2 Baso # (Auto) 0.1 Abs Immat Gran (auto) 0.01 Absolute Neuts (auto) 4.0 Absolute Nucleated RBC 0.000 Nucleated RBC % (auto) 0.0 Hold Blue Top SEE NOTE Anion Gap 9 L Estim Creat Clear Calc 105.3 Estimated GFR > 60 Random Glucose 162 H Calcium 7.9 L Total Bilirubin 0.4 AST 30 ALT 9 Alkaline Phosphatase 144 H Troponin I High Sens 42.5 H NT-Pro-B Natriuret Pep 97220.2 H Total Protein 4.9 L Albumin 2.4 L Influenza Type A (PCR) NEGATIVE Influenza Type B (PCR) NEGATIVE RSV RNA Qual (PCR) NEGATIVE SARS-CoV-2 RNA (RT-PCR) NEGATIVE Assessment and Plan (1) Congestive heart failure: Qualifiers: Heart failure type: systolic Status: Acute Plan Assessment: 60-year-old male who presented to hospital complaining of worsening shortness of breath and edema, with proBNP [id number], chest x-ray consistent with heart failure. CHF exacerbation, suspect medical noncompliance Suspect heart failure with reduced ejection fraction -proBNP on admission 25,183 -chest x-ray consistent with heart failure -status post 40 mg of IV Lasix and nitro given in the ED, we will give additional 40 at this time, tomorrow we will initiate 80 mg IV b.i.d. -TSH and A1c ordered -TTE ordered and pending -we will order bilateral lower extremity to rule out DVT -cardiology consulted -telemetry ordered -we will monitor for any signs of hypoxia, if needed to consider BiPAP Hypertension, chronic -at this time we will continue with IV Lasix, we will closely monitor initiate medications accordingly FEN: NI, replete as needed, cardiac GI PPx: Not indicated DVT PPx: Heparin and SCDs Code Status: Full Code Awaiting med rec Disposition: All questions and concerns with the patient were answered to satisfaction. All pertinent clinical documents, images and labs were reviewed. DISCLAIMER: This document was created using voice recognition software. Any mistakes in the prescription are unintentional. An attempt was made to focus for accuracy, but to expedite availability, some errors may persist. Please contact with any need for correction or further clarification Total time managing care of this patient today: 55 minutes. Quality Stroke Does the patient have a stroke diagnosis?: No VTE Prior VTE?: No VTE Risk Level:: Medical - moderate - high VTE Device Contraindication: N/A - Device Ordered VTE Drug Contraindication: N/A - Med Ordered
--- NOTE | 2025-10-03 18:56 | HO.NURTONUR ---
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 Here with increased pitting edema BLE x 1 week, and upper congestion. has PLUs3 pitting EDEMA BLEs and puffiness in face/eyes. Denies SOB and CP. proBNP 25k. trop slightly elevated at 42. Has nitro paste and lasix total of 80IV in ed. Stands to urinate at bedside. 500ml out in ED at this time. Pt is qxox3. guinean speaking.
--- NOTE | 2025-10-03 19:20 | PC.NURSE ---
Assumed care of this Pt at 1900. Pt A&Ox3, sitting at edge of stretcher 1 assist for urinal use.
[2025-10-03 19:43] LABS: Troponin-I High Sensitivity 53.8 ng/L (<3.5-35.0)
[2025-10-04 03:40] VITALS: BP 162/78; PULSE 81; RESP 16; TEMP 36.8; O2SAT 93
[2025-10-04 06:00] VITALS: BMI 22.1
[2025-10-04 07:20] VITALS: BP 172/92; PULSE 89; RESP 18; TEMP 37; O2SAT 97
[2025-10-04 07:22] LABS: Hematocrit 38.9 % (42.0-52.0); Hemoglobin 12.7 g/dl (14.0-18.0); Mean Corpuscular HGB Conc 32.6 g/dl (31.0-36.0); Mean Corpuscular Hemoglobin 30.0 pg (27.0-33.0); Mean Corpuscular Volume 91.7 fL (80.0-98.0); NRBC Abs Auto 0.000 X10*3/uL (0.0-0.012); NRBC Pct Auto 0.0 /100WBC (0.0-0.2); Platelet Count 278 X10*3/uL (160-400); Red Blood Count 4.24 X10*6/uL (4.60-5.80); White Blood Count 4.8 X10*3/uL (4.8-10.8)
[2025-10-04 07:43] LABS: Anion Gap 13 (12-20); Blood Urea Nitrogen 14 mg/dL (9-16); Calcium 7.9 mg/dL (8.4-10.2); Carbon Dioxide 24 mmol/L (22-29); Chloride 108 mmol/L (96-108); Creatinine Clr Calc Pharmacy 92.4; Estimated Glomerular Filt Rate > 60; Magnesium 1.9 mg/dL (1.6-2.6); Potassium 3.8 mmol/L (3.3-5.1); Sodium 141 mmol/L (135-145)
[2025-10-04 07:59] LABS: Thyroid Stimulating Hormone 1.06 uIU/mL (0.32-4.0)
[2025-10-04] MEDS: 0.9 % Sodium Chloride Flush 3 ML SYRINGE IVFLUSH ×4 (08:04→20:43)
[2025-10-04] MEDS: Furosemide 100 MG/10 ML VIAL IVPUSH ×2 (08:04→20:41)
[2025-10-04 11:20] LABS: Glucose, Whole Blood 191 mg/dL (60-115)
[2025-10-04 11:24] VITALS: BP 178/100; PULSE 91; RESP 18; TEMP 36.2; O2SAT 98
--- NOTE | 2025-10-04 12:52 | HO.PM.IMPN ---
Subjective Subjective Date of Service: 10/04/25 Interval History: Patient seen examined at bedside this morning, patient this time poorly cooperative, patient not allowed to be examined by exceptional student education aide earlier. Patient at this time with-2.3 L. lower extremity DVT negative for DVT. Review of Systems Review of Systems: Yes Unobtainable due to mental status Physical Exam Exam: Exam: General: Somnolent Head: AT/NC ENT: Moist mucous membranes Neck: supple CVS; RRR, S1 S2 normal Lungs: Clear bilateral breath sounds, no wheezes or crackles Abd: Soft non tender, non distended Ext: no calf tenderness MSK: moving all 4 limbs Skin: Lower extremity edema Psych: Poorly cooperative Neurology: UTO Vital Signs: Vital Signs: Last Vital Signs Temp 97.2 F 10/04/25 11:24 Pulse 91 10/04/25 11:24 Resp 18 10/04/25 11:24 BP 178/100 H 10/04/25 11:24 Pulse Ox 98 10/04/25 11:24 O2 Del Method Room Air 10/04/25 11:24 BMI result Body Mass Index 22.1 Objective Data Active Medications Acetaminophen (Acetaminophen 325 Mg Tablet) 650 mg PO Q6H PRN PRN Reason: Pain, Mild 1-3,fever,headache Calcium Carbonate (Calcium Carbonate 750 Mg Tab.Chew) 750 mg PO Q4H PRN PRN Reason: Heartburn Dextrose (Dextrose 50 % 25 Gm/50 Ml Syringe) 25 gm IVPUSH Q15M PRN; Protocol PRN Reason: per Hypoglycemia Standing Ord. Furosemide (Furosemide 100 Mg/10 Ml Vial) 100 mg IVPUSH BID [facility]; Protocol Last Admin: 10/04/25 08:04 Dose: 100 mg Documented By: YARI Glucose (Glucose Gel 15 Gm Gel..Gram.) 15 gm PO Q15M PRN; Protocol PRN Reason: per Hypoglycemia Standing Ord. Heparin Sodium (Porcine) (Heparin Sodium,Porcine 5,000 Unit/Ml Vial) 5,000 unit SUBCUT Q12H [facility] Last Admin: 10/04/25 06:12 Dose: 5,000 unit Documented By: MARTA Insulin Human Lispro (Insulin Lispro 100 Unit/Ml 3 Ml Vial) 0 unit SUBCUT QIDACHS [facility]; Protocol Last Admin: 10/04/25 11:52 Dose: 2 unit Documented By: YARI Magnesium Hydroxide (Milk Of Magnesia 30 Ml Oral.Susp) 30 ml PO DAILY PRN PRN Reason: Constipation Melatonin (Melatonin 3 Mg Tablet) 6 mg PO BEDTIME PRN PRN Reason: Insomnia Ondansetron HCl (Ondansetron Hcl 4 Mg/2 Ml Vial) 4 mg IVPUSH Q8H PRN PRN Reason: Nausea and Vomiting Sodium Chloride (0.9 % Sodium Chloride Flush 3 Ml Syringe) 3 ml IVFLUSH QSHIFT [facility] Last Admin: 10/04/25 08:04 Dose: 3 ml Documented By: YARI Labs 10/04/25 06:47 10/04/25 06:47 Labs: Laboratory Results - last 24 hr 10/03/25 10/03/25 10/04/25 16:45 19:10 06:47 MCV 91.6 91.7 MCH 30.0 30.0 MCHC 32.7 32.6 RDW 13.4 13.2 Plt Count 264 278 MPV 10.7 11.1 Immature Gran % (Auto) 0.2 Neut % (Auto) 67.5 Lymph % (Auto) 19.9 L [place] % (Auto) 7.9 Eos % (Auto) 3.5 Baso % (Auto) 1.0 Lymph # (Auto) 1.2 [place] # (Auto) 0.5 Eos # (Auto) 0.2 Baso # (Auto) 0.1 Abs Immat Gran (auto) 0.01 Absolute Neuts (auto) 4.0 Absolute Nucleated RBC 0.000 0.000 Nucleated RBC % (auto) 0.0 0.0 Hold Blue Top SEE NOTE Anion Gap 9 L 13 Estim Creat Clear Calc 105.3 92.4 Estimated GFR > 60 > 60 POC Glucose Random Glucose 162 H 160 H Calcium 7.9 L 7.9 L Magnesium 1.9 Total Bilirubin 0.4 AST 30 ALT 9 Alkaline Phosphatase 144 H Troponin I High Sens 42.5 H 53.8 H NT-Pro-B Natriuret Pep 50360.2 H Total Protein 4.9 L Albumin 2.4 L TSH 1.06 Influenza Type A (PCR) NEGATIVE Influenza Type B (PCR) NEGATIVE RSV RNA Qual (PCR) NEGATIVE SARS-CoV-2 RNA (RT-PCR) NEGATIVE 10/04/25 11:10 MCV MCH MCHC RDW Plt Count MPV Immature Gran % (Auto) Neut % (Auto) Lymph % (Auto) [place] % (Auto) Eos % (Auto) Baso % (Auto) Lymph # (Auto) [place] # (Auto) Eos # (Auto) Baso # (Auto) Abs Immat Gran (auto) Absolute Neuts (auto) Absolute Nucleated RBC Nucleated RBC % (auto) Hold Blue Top Anion Gap Estim Creat Clear Calc Estimated GFR POC Glucose 191 H Random Glucose Calcium Magnesium Total Bilirubin AST ALT Alkaline Phosphatase Troponin I High Sens NT-Pro-B Natriuret Pep Total Protein Albumin TSH Influenza Type A (PCR) Influenza Type B (PCR) RSV RNA Qual (PCR) SARS-CoV-2 RNA (RT-PCR) Assessment and Plan (1) Congestive heart failure: Status: Acute Plan Assessment: 60-year-old male who presented to hospital complaining of worsening shortness of breath and edema, with proBNP 79691, chest x-ray consistent with heart failure. patient refusing medications and being examined. CHF exacerbation, suspect medical noncompliance Suspect heart failure with reduced ejection fraction -proBNP on admission 25,183 -chest x-ray consistent with heart failure, US negative for DVT -TTE ordered and pending -status post 40 mg of IV Lasix and nitro given in the ED, we will give additional 40 at this time, continue IV lasix 100 mg IV b.i.d. -cardiology consulted, however patient refused to be seen, will staff counselor on importance of allowing to be seen by cardiology -continue w/ telemetry -we will monitor for any signs of hypoxia, if needed to consider BiPAP Hypertension, chronic -at this time we will continue with IV Lasix, will initiate amlodipine 5mg at this time, we will closely monitor initiate medications accordingly FEN: NI, replete as needed, cardiac GI PPx: Not indicated DVT PPx: Heparin and SCDs Code Status: Full Code Total time managing care of this patient today: 55 minutes. Quality Stroke Does the patient have a stroke diagnosis?: No VTE Prior VTE?: No VTE Risk Level:: Medical - moderate - high VTE Device Contraindication: N/A - Device Ordered VTE Drug Contraindication: N/A - Med Ordered
--- NOTE | 2025-10-04 14:17 | MHC.CM.PN ---
PT REPORTS HE CAME IN FROM [facility] HE STATES HE WENT THERE STR, BUT WAS THERE SO LONG HE LOST HIS HOME HE SAYS HE HAS A STATE WORKER HELPING TO FIND HIM A NEW APARTMENT HE CAN WALK WITH A WALKER, BUT SAYS THE SNF REQUIRES HIM TO HAVE SOMEONE FOLLOW WITH A W/C MOLST ON FILE, COPY OF HCP REQUESTED FROM SNF PCP: CLIFFORD YEN PT REPORTS HE NOW HAS [place] DCP: RETURN TO [facility], PT IS A BED HOLD BLS TRANSPORT
--- NOTE | 2025-10-04 14:48 | PHA.MEDREC ---
Addendum entered by Edy Augustine PharmD 10/04/25 14:52: reviewed Original Note: Pharmacy Consult ? Medication Reconciliation Pharmacy has completed the medication reconciliation. Confirmed medication list with claims history and list from outside facility.
[2025-10-04 15:17] VITALS: BP 158/94; PULSE 88; RESP 18; TEMP 36.2; O2SAT 98
[2025-10-04 16:22] LABS: Glucose, Whole Blood 131 mg/dL (60-115)
[2025-10-04] MEDS: oxyCODONE HCl Immed Release 5 MG TABLET PO (16:40)
[2025-10-04 20:00] VITALS: BP 179/88; PULSE 82; RESP 18; TEMP 36.6; O2SAT 96
[2025-10-04 21:10] LABS: Glucose, Whole Blood 242 mg/dL (60-115)
[2025-10-05] VITALS (10 sets, daily range): BP systolic 122–170; BP diastolic 60–82; PULSE 80–96; RESP 18–19; TEMP 36.4–37.2; O2SAT 95–98; BMI 20.1
--- NOTE | 2025-10-05 07:00 | CA_ITS ---
Transthoracic Echocardiogram Patient (Last, First, Middle): William Rowell E Gender: M Date of : 1965 Age: 60 Procedure Date: 10/05/2025 Procedure Type: Transthoracic Echocardiogram Location: [facility] [place] Height: 177.8 cm Weight: 63.05 kg BSA: 1.79 m2 Heart Rate: bpm BP: 140 / 74 mmHg Carton Counter Feeder: Referring MD: Jhonatan Love MD Symptoms: Heart failure Study Quality: Adequate ECG Rhythm: Sinus Conclusions: - Normal left ventricular cavity size. There is mildly increased left ventricular wall thickness. The left ventricular systolic function is severely decreased. The visually estimated ejection fraction is between 20-25%. - E/E prime ratio is between 8 and 15 consistent with indeterminate filling pressures. - The basal anteroseptal and mid anteroseptal segments are akinetic. - Normal right ventricular cavity size and systolic function. - The left atrium is moderately dilated. - There is mild dilatation of the ascending aorta measuring 4.20 cm. Findings Left Ventricle Normal left ventricular cavity size. There is mildly increased left ventricular wall thickness. The left ventricular systolic function is severely decreased. The visually estimated ejection fraction is between 20 25%. There is evidence of regional wall motion abnormalities. There is severe global hypokinesis. Abnormal diastolic function is noted. Spectral Doppler is indicative of a pseudonormal filling pattern. E/E prime ratio is between 8 and 15 consistent with indeterminate filling pressures. Wall Motion Rest Echo Findings The basal anteroseptal and mid anteroseptal segments are akinetic. Right Ventricle Normal right ventricular cavity size and systolic function. Atria The left atrium is moderately dilated. The right atrium is normal in size. Aortic Valve The aortic valve was not well visualized. There is no aortic valve stenosis. There is mild aortic valve regurgitation. Mitral Valve Normal mitral valve structure and function. There is no mitral valve regurgitation. There is no mitral valve stenosis. Pulmonic Valve The pulmonic valve is likely normal. Tricuspid Valve Likely normal tricuspid valve structure and function. Tricuspid regurgitation envelope is inadequate for calculation of right ventricular systolic pressure. Normal right atrial pressure. Great Vessels There is mild dilatation of the ascending aorta measuring 4.20 cm. Venous The inferior vena cava is normal in size and collapses greater than 50% with inspiration. Pericardium/Pleural There is no evidence of pericardial effusion. Prior Study Comparison No prior study available for comparison. Measurements 2D Linear Measurements IVSd: 1.26 0.6-0.9/0.6-1.0 cm LVIDd: 5.15 3.9-5.3/4.2-5.9 cm LVIDd Index: 2.88 2.4-3.2/2.2-3.1 cm/m2 LVIDs: 4.56 2.0-3.6 cm LVPWd: 1.24 0.7-1.1 cm Ao Root: 3.80 2.1-3.5 cm LA Diam: 2.40 2.7-3.8/3.0-4.0 cm LAIDs Index: 1.34 1.5-2.3 cm/m2 LV Mass: 323.55 67-162/88-224 g LV Mass Index: 180.75 43-95/49-115 g/m2 LVOT Diam: 2.20 3.0+(-)1.3 cm 2D Systolic Function EF 4C: 19.80 >55% EF 2C: 20.50 >55% EF BiP: 21.80 >55% Mitral Valve MV Pk E: 0.91 MV Decel Time: 133.00 E'Lateral: 10.00 E'Medial: 9.79 E/E' Med: 9.30 E/E' Lat: 9.10 PHT: 39.00 MVA PHT: 5.64 Decel Gilliam: 6.88 Aortic Valve AoV Pk Nilo: 0.95 AoV Mn Nilo: 0.66 AoV VTI: 0.19 AoV Pk Grad: 4.00 Aov Mn Grad: 2.00 ALISA Cont.VTI: 3.29 LVOT LVOT Pk Nilo: 0.65 LVOT Mn Nilo: 0.40 LVOT VTI: 0.17 LVOT Pk Grad: 2.00 LVOT Mn Grad: 1.00 LVOT Diam: 2.20 LVOT Area: 3.80 Diastolic Function MV Pk E: 0.91 E'Medial: 9.79 E/E' Med: 9.30 E' Laterial: 10.00 E/E' Lat: 9.10 Right Ventricle TAPSE (mm): 27.20 TVS' Nilo: 12.40 Tricuspid Valve TR Pk Nilo: 1.89 TR Pk Grad: 14.00 RA Press: 3.00 Great Vessels Aorta Ao Root-2D: 3.80 2.0-3.7 cm Ao Asc: 4.20 2.1-3.4 cm Pulmonary Valve PV Pk Nilo: 0.73 Peak PV Grad: 2.00 Updated in Other Vendor System with Status of Final Rangel Sotomayor MD electronically signed on 10/05/2025 2:55:28 PM with status of Final
[2025-10-05 07:42] LABS: Hematocrit 38.5 % (42.0-52.0); Hemoglobin 12.8 g/dl (14.0-18.0); Mean Corpuscular HGB Conc 33.2 g/dl (31.0-36.0); Mean Corpuscular Hemoglobin 29.9 pg (27.0-33.0); Mean Corpuscular Volume 90.0 fL (80.0-98.0); NRBC Abs Auto 0.000 X10*3/uL (0.0-0.012); NRBC Pct Auto 0.0 /100WBC (0.0-0.2); Platelet Count 275 X10*3/uL (160-400); Red Blood Count 4.28 X10*6/uL (4.60-5.80); White Blood Count 5.0 X10*3/uL (4.8-10.8)
[2025-10-05 08:15] LABS: Anion Gap 13 (12-20); Blood Urea Nitrogen 18 mg/dL (9-16); Calcium 7.8 mg/dL (8.4-10.2); Carbon Dioxide 28 mmol/L (22-29); Chloride 102 mmol/L (96-108); Creatinine Clr Calc Pharmacy 76.5; Estimated Glomerular Filt Rate > 60; Magnesium 1.8 mg/dL (1.6-2.6); Potassium 3.5 mmol/L (3.3-5.1); Sodium 139 mmol/L (135-145)
[2025-10-05 08:40] LABS: Glucose, Whole Blood 177 mg/dL (60-115)
[2025-10-05] MEDS: 0.9 % Sodium Chloride Flush 3 ML SYRINGE IVFLUSH ×3 (09:01→21:47)
[2025-10-05] MEDS: Furosemide 100 MG/10 ML VIAL IVPUSH ×2 (09:01→21:48)
[2025-10-05 11:35] LABS: Glucose, Whole Blood 255 mg/dL (60-115)
--- NOTE | 2025-10-05 12:13 | MHC.CM.PN ---
Per ROUNDS discussion, Patient is not yet medically cleared for dc (IV Lasix); returning to LTC is the goal and CM will continue to follow.
--- NOTE | 2025-10-05 14:41 | MHC.CM.PN ---
A copy of the HCP has been uploaded into [facility] and placed on the chart.
--- NOTE | 2025-10-05 15:22 | HO.PM.IMPN ---
Subjective Subjective Date of Service: 10/05/25 Interval History: Patient seen examined at bedside this morning, patient having TTE done at this time, mentions that his lower extremity edema has improved. Review of Systems Review of Systems: Yes all other systems are reviewed and are negative Physical Exam Exam: Exam: General: AxOx3, No acute distress Head: AT/NC ENT: Moist mucous membranes Neck: supple CVS; RRR, S1 S2 normal Lungs: Clear bilateral breath sounds, no wheezes or crackles Abd: Soft non tender, non distended Ext: no calf tenderness MSK: moving all 4 limbs Skin: Bilateral lower extremity edema, sacral edema, improved Psych: Cooperative with exam Neurology: no focal deficit Vital Signs: Vital Signs: Last Vital Signs Temp 98 F 10/05/25 11:56 Pulse 86 10/05/25 11:56 Resp 18 10/05/25 11:56 BP 163/79 H 10/05/25 11:56 Pulse Ox 95 10/05/25 11:56 O2 Del Method Room Air 10/05/25 11:56 BMI result Body Mass Index 20.1 Objective Data Active Medications Acetaminophen (Acetaminophen 325 Mg Tablet) 650 mg PO Q6H PRN PRN Reason: Pain, Mild 1-3,fever,headache Aspirin (Aspirin Enteric Coated 81 Mg Tablet.Dr) 81 mg PO DAILY SO Atorvastatin Calcium (Atorvastatin Calcium 80 Mg Tablet) 80 mg PO BEDTIME SO Calcium Carbonate (Calcium Carbonate 750 Mg Tab.Chew) 750 mg PO Q4H PRN PRN Reason: Heartburn Dextrose (Dextrose 50 % 25 Gm/50 Ml Syringe) 25 gm IVPUSH Q15M PRN; Protocol PRN Reason: per Hypoglycemia Standing Ord. Furosemide (Furosemide 100 Mg/10 Ml Vial) 100 mg IVPUSH BID [facility]; Protocol Last Admin: 10/05/25 09:01 Dose: 100 mg Documented By: STEVE Glucose (Glucose Gel 15 Gm Gel..Gram.) 15 gm PO Q15M PRN; Protocol PRN Reason: per Hypoglycemia Standing Ord. Heparin Sodium (Porcine) (Heparin Sodium,Porcine 5,000 Unit/Ml Vial) 5,000 unit SUBCUT Q12H [facility] Last Admin: 10/05/25 05:40 Dose: 5,000 unit Documented By: SARAH Insulin Glargine (Insulin Glargine,Hum.Rec.Anlog 100 Unit/Ml 10 Ml Vial) 10 unit SUBCUT BEDTIME [facility] Insulin Human Lispro (Insulin Lispro 100 Unit/Ml 3 Ml Vial) 0 unit SUBCUT QIDACHS [facility]; Protocol Last Admin: 10/05/25 12:02 Dose: 6 unit Documented By: STEVE Loratadine (Loratadine 10 Mg Tablet) 10 mg PO DAILY [facility] Magnesium Hydroxide (Milk Of Magnesia 30 Ml Oral.Susp) 30 ml PO DAILY PRN PRN Reason: Constipation Magnesium Hydroxide (Milk Of Magnesia 30 Ml Oral.Susp) 5 ml PO DAILY PRN PRN Reason: Constipation Magnesium Oxide (Magnesium Oxide 400 Mg Tablet) 400 mg PO ONCE ONE Stop: 10/05/25 15:19 Melatonin (Melatonin 3 Mg Tablet) 6 mg PO BEDTIME PRN PRN Reason: Insomnia Non-Formulary Medication (Dapagliflozin Propanediol [Farxiga]) 10 mg PO DAILY [facility] Ondansetron HCl (Ondansetron Hcl 4 Mg/2 Ml Vial) 4 mg IVPUSH Q8H PRN PRN Reason: Nausea and Vomiting Oxycodone HCl (Oxycodone Hcl Immed Release 5 Mg Tablet) 5 mg PO Q4H PRN PRN Reason: Pain, Severe (Pain Scale 7-10) Last Admin: 10/04/25 16:40 Dose: 5 mg Documented By: ROSS Senna (Sennosides 8.6 Mg Tablet) 8.6 mg PO DAILY PRN PRN Reason: Constipation Sodium Chloride (0.9 % Sodium Chloride Flush 3 Ml Syringe) 3 ml IVFLUSH [facility] Last Admin: 10/05/25 09:01 Dose: 3 ml Documented By: STEVE Tramadol HCl (Tramadol Hcl 50 Mg Tablet) 50 mg PO Q4H PRN PRN Reason: Pain, Moderate(Pain Scale 4-6) Labs 10/05/25 06:49 10/05/25 06:49 Labs: Laboratory Results - last 24 hr 10/04/25 10/04/25 10/05/25 16:18 20:41 06:49 MCV 90.0 MCH 29.9 MCHC 33.2 RDW 13.1 Plt Count 275 MPV 11.3 Absolute Nucleated RBC 0.000 Nucleated RBC % (auto) 0.0 Anion Gap 13 Estim Creat Clear Calc 76.5 Estimated GFR > 60 POC Glucose 131 H 242 H Random Glucose 163 H Calcium 7.8 L Magnesium 1.8 10/05/25 10/05/25 08:36 11:26 MCV MCH MCHC RDW Plt Count MPV Absolute Nucleated RBC Nucleated RBC % (auto) Anion Gap Estim Creat Clear Calc Estimated GFR POC Glucose 177 H 255 H Random Glucose Calcium Magnesium Assessment and Plan (1) Congestive heart failure: Status: Acute Plan 60-year-old male who presented to hospital complaining of worsening shortness of breath and edema, with proBNP 15136, chest x-ray consistent with heart failure. patient refusing medications and being examined. CHF exacerbation, suspect medical noncompliance Suspect heart failure with reduced ejection fraction -proBNP on admission 25,183, repeat ordered -chest x-ray consistent with heart failure, US negative for DVT -TTE, awaiting report -status post 40 mg of IV Lasix and nitro given in the ED, we will give additional 40 at this time, continue IV lasix 100 mg IV b.i.d. -cardiology consulted, however patient refused to be seen, will certified rehabilitation counselor on importance of allowing to be seen by cardiology -continue w/ telemetry -we will monitor for any signs of hypoxia Hypertension, chronic -at this time we will continue with IV Lasix, will increase amlodipine to 7.5mg at this time, will restart jardiance tomorrow, we will closely monitor initiate medications accordingly FEN: NI, replete as needed, cardiac GI PPx: Not indicated DVT PPx: Heparin and SCDs Code Status: Full Code Total time managing care of this patient today: 55 minutes. Quality Stroke Does the patient have a stroke diagnosis?: No VTE Prior VTE?: No VTE Risk Level:: Medical - moderate - high VTE Device Contraindication: N/A - Device Ordered VTE Drug Contraindication: N/A - Med Ordered
[2025-10-05 16:19] LABS: Glucose, Whole Blood 290 mg/dL (60-115)
[2025-10-05] MEDS: oxyCODONE HCl Immed Release 5 MG TABLET PO (16:50)
[2025-10-05 20:00] LABS: Glucose, Whole Blood 266 mg/dL (60-115)
[2025-10-05] MEDS: Insulin Glargine,Hum.rec.anlog 100 UNIT/ML 10 ML VIAL 10 UNIT SUBCUT (21:48)
[2025-10-06] VITALS (7 sets, daily range): BP systolic 116–143; BP diastolic 70–88; PULSE 65–92; RESP 18–20; TEMP 36.4–36.8; O2SAT 96–98
[2025-10-06 07:25] LABS: Glucose, Whole Blood 171 mg/dL (60-115)
[2025-10-06] MEDS: Aspirin Enteric Coated 81 MG TABLET.DR PO (07:51)
[2025-10-06] MEDS: 0.9 % Sodium Chloride Flush 3 ML SYRINGE IVFLUSH ×3 (07:52→21:49)
[2025-10-06] MEDS: oxyCODONE HCl Immed Release 5 MG TABLET PO (08:02)
[2025-10-06] MEDS: Furosemide 100 MG/10 ML VIAL IVPUSH (08:10)
[2025-10-06 08:56] LABS: Hematocrit 38.9 % (42.0-52.0); Hemoglobin 12.9 g/dl (14.0-18.0); Mean Corpuscular HGB Conc 33.2 g/dl (31.0-36.0); Mean Corpuscular Hemoglobin 30.1 pg (27.0-33.0); Mean Corpuscular Volume 90.7 fL (80.0-98.0); NRBC Abs Auto 0.000 X10*3/uL (0.0-0.012); NRBC Pct Auto 0.0 /100WBC (0.0-0.2); Platelet Count 255 X10*3/uL (160-400); Red Blood Count 4.29 X10*6/uL (4.60-5.80); White Blood Count 4.7 X10*3/uL (4.8-10.8)
[2025-10-06 09:34] LABS: Anion Gap 8 (12-20); Blood Urea Nitrogen 22 mg/dL (9-16); Calcium 7.7 mg/dL (8.4-10.2); Carbon Dioxide 33 mmol/L (22-29); Chloride 100 mmol/L (96-108); Creatinine Clr Calc Pharmacy 69.9; Estimated Glomerular Filt Rate > 60; Magnesium 1.8 mg/dL (1.6-2.6); Potassium 3.8 mmol/L (3.3-5.1); Sodium 137 mmol/L (135-145)
[2025-10-06 11:48] LABS: Glucose, Whole Blood 210 mg/dL (60-115)
--- NOTE | 2025-10-06 13:25 | P.CONCA_ITS ---
History of Present Illness History of Present Illness Date of Service: 10/06/25 Requesting physician: Jhonatan Love Chief complaint: Shortness of breath Narrative: 60 year gentleman who is presenting with lower extremity edema and congestive heart failure. Echocardiography has shown severe LV dysfunction with global LV hypokinesis. He has background of hypertension and diabetes. He was in a rehab facility after shoulder surgery where symptoms developed and the nurse there advised him to come to the emergency department. He is denying any shortness of breath, orthopnea or PND. His main complaint was edema of the lower extremities which has improved significantly with diuresis. Does not drink alcohol. He is a diabetic. Denying any chest discomfort or history of myocardial infarction. [facility] Social History Social History Household Members: Other Housing: Long Term Housing Other:: [place] [facility] Alcohol intake: never Patient Tobacco Use Status: Current everyday Tobacco user Tobacco use type: Cigarette Cigarettes Per Day: 6 Smoked in Last 30 Days: Yes Patient Interested in Nicotine Replacement: No (declined) Patient Given Instructions on How to Stop Smoking: No (declined) Use of substances other than those prescribed or required for medical reasons: No Substance Use Type: Marijuana Currently Displaying Signs/Symptoms of Drug Intoxication Withdrawal: No Have you been hit, kicked, punched, or otherwise hurt by someone within the past year? If so, by whom?: No Do you feel safe in your current relationship?: No Current Relationship Is there a partner from a previous relationship who is making you feel unsafe now?: No Are you made to feel afraid or neglected: No Advance Directives: No Advance Directives Information Provided: No Do you have a plan to hurt others: No Plan Recently lost weight without trying: No How much weight loss: Not applicable Eating poorly because of decreased appetite: No Nutrition screen score: 0 Poor oral hygiene: Yes (no teeth) service: No Meds Allergies Allergy/AdvReac Type Severity Reaction Status Date / Time No Known Allergies Allergy Verified 10/03/25 16:20 Active Medications: Current Medications Acetaminophen (Acetaminophen 325 Mg Tablet) 650 mg PO Q6H PRN PRN Reason: Pain, Mild 1-3,fever,headache Amlodipine Besylate (Amlodipine Besylate 2.5 Mg Tablet) 7.5 mg PO DAILY SO; Protocol Last Admin: 10/06/25 08:10 Dose: Not Given Aspirin (Aspirin Enteric Coated 81 Mg Tablet.Dr) 81 mg PO DAILY [facility] Last Admin: 10/06/25 07:51 Dose: 81 mg Atorvastatin Calcium (Atorvastatin Calcium 80 Mg Tablet) 80 mg PO BEDTIME [facility] Last Admin: 10/05/25 21:47 Dose: 80 mg Calcium Carbonate (Calcium Carbonate 750 Mg Tab.Chew) 750 mg PO Q4H PRN PRN Reason: Heartburn Dextrose (Dextrose 50 % 25 Gm/50 Ml Syringe) 25 gm IVPUSH Q15M PRN; Protocol PRN Reason: per Hypoglycemia Standing Ord. Empagliflozin (Empagliflozin 10 Mg Tablet) 10 mg PO DAILY [facility] Last Admin: 10/06/25 07:51 Dose: 10 mg Furosemide (Furosemide 100 Mg/10 Ml Vial) 60 mg IVPUSH BID [facility]; Protocol Glucose (Glucose Gel 15 Gm Gel..Gram.) 15 gm PO Q15M PRN; Protocol PRN Reason: per Hypoglycemia Standing Ord. Heparin Sodium (Porcine) (Heparin Sodium,Porcine 5,000 Unit/Ml Vial) 5,000 unit SUBCUT Q12H [facility] Last Admin: 10/06/25 05:34 Dose: 5,000 unit Insulin Glargine (Insulin Glargine,Hum.Rec.Anlog 100 Unit/Ml 10 Ml Vial) 10 unit SUBCUT BEDTIME [facility] Last Admin: 10/05/25 21:48 Dose: 10 unit Insulin Human Lispro (Insulin Lispro 100 Unit/Ml 3 Ml Vial) 0 unit SUBCUT QIDACHS [facility]; Protocol Last Admin: 10/06/25 12:06 Dose: 4 unit Loratadine (Loratadine 10 Mg Tablet) 10 mg PO DAILY [facility] Last Admin: 10/06/25 07:51 Dose: 10 mg Magnesium Hydroxide (Milk Of Magnesia 30 Ml Oral.Susp) 30 ml PO DAILY PRN PRN Reason: Constipation Magnesium Hydroxide (Milk Of Magnesia 30 Ml Oral.Susp) 30 ml PO DAILY PRN PRN Reason: Constipation Melatonin (Melatonin 3 Mg Tablet) 6 mg PO BEDTIME PRN PRN Reason: Insomnia Ondansetron HCl (Ondansetron Hcl 4 Mg/2 Ml Vial) 4 mg IVPUSH Q8H PRN PRN Reason: Nausea and Vomiting Oxycodone HCl (Oxycodone Hcl Immed Release 5 Mg Tablet) 5 mg PO Q4H PRN PRN Reason: Pain, Severe (Pain Scale 7-10) Last Admin: 10/06/25 08:02 Dose: 5 mg Senna (Sennosides 8.6 Mg Tablet) 8.6 mg PO DAILY PRN PRN Reason: Constipation Sodium Chloride (0.9 % Sodium Chloride Flush 3 Ml Syringe) 3 ml IVFLUSH QSHIFT SO Last Admin: 10/06/25 07:52 Dose: 3 ml Tramadol HCl (Tramadol Hcl 50 Mg Tablet) 50 mg PO Q4H PRN PRN Reason: Pain, Moderate(Pain Scale 4-6) Home Medications ?Medication ?Instructions ?Recorded ?Confirmed ?Last Taken ?Type acetaminophen 325 mg tablet 650 mg PO Q4H PRN Pain or Fever 10/04/25 10/04/25 Unknown History aspirin 81 mg tablet,delayed 81 mg PO DAILY 10/04/25 1 12/04/24 Unknown History release atorvastatin 80 mg tablet 80 mg PO BEDTIME 10/04/25 Unknown History bisacodyl 10 mg rectal suppository 10 mg SC DAILY PRN Constipation 10/04/25 10/04/25 Unknown History carvedilol 6.25 mg tablet 6.25 mg PO BID 10/04/2509/13 Unknown History cetirizine 10 mg tablet 10 mg PO DAILY 10/04/2509/13 Unknown History dapagliflozin propanediol 10 mg 10 mg PO DAILY 5 10/04/25 Unknown History tablet (Farxiga) docusate sodium 100 mg capsule 100 mg PO BID 10/04/25 10/04/25 Unknown History guaifenesin 100 mg/5 mL oral liquid 100 mg PO Q4H PRN Cough 10/04/25 10/04/25 Unknown History insulin glargine 100 unit/mL (3 10 unit subcut BEDTIME 10/04/25 10/04/25 Unknown History mL) subcutaneous pen (Lantus Solostar U-100 Insulin) insulin lispro 100 unit/mL 1 sliding scale dose subcut AC 10/04/25 10/04/25 Unknown History subcutaneous half-unit pen lisinopril 40 mg tablet 40 mg PO DAILY 10/04/2509/13 Unknown History magnesium hydroxide 400 mg/5 mL 5 ml PO DAILY PRN Cons tipation 10/04/25 10/04/25 Unknown History oral suspension oxycodone 5 mg tablet 15 mg PO Q4H PRN Severe Pain 10/04/25 10/04/25 Unknown History (Scale Score 7-10) polyethylene glycol 3350 17 gram 17 g PO DAILY PRN Con stipation 10/04/25 10/04/25 Unknown History oral powder packet polyvinyl alcohol 1.4 % eye drops 1 drp ophthalmic (ey e) BID 10/04/25 10/04/25 Unknown History sennosides 8.6 mg tablet (senna) 8.6 mg PO DAILY PRN C onstipation 10/04/25 10/04/25 Unknown History Physical Exam 2 Vital Signs: Vital Signs: Last Vital Signs Temp 98.3 F 10/06/25 12:00 Pulse 84 10/06/25 12:00 Resp 18 10/06/25 12:00 BP 139/86 10/06/25 12:00 Pulse Ox 97 10/06/25 12:00 O2 Del Method Room Air 10/06/25 12:00 BMI result Body Mass Index 20.0 GENERAL APPEARANCE: in no acute distress, pleasant. NECK: no carotid bruit, no jugular venous distention. SKIN: no suspicious lesions, warm and dry. HEART: no murmurs, regular rate and rhythm. LUNGS: clear to auscultation bilaterally. ABDOMEN: soft, nontender. EXTREMITIES: 1+ edema. PERIPHERAL PULSES: equal. NEUROLOGIC: No gross deficits, AAO X 3 Objective Labs and Meds 10/06/25 08:39 10/06/25 08:39 Lab results: Laboratory Results - last 24 hr 10/05/25 10/05/25 10/06/25 16:06 19:50 07:15 WBC RBC Hgb Hct MCV MCH MCHC RDW Plt Count MPV Absolute Nucleated RBC Nucleated RBC % (auto) Sodium Potassium Chloride Carbon Dioxide Anion Gap BUN Creatinine Estim Creat Clear Calc Estimated GFR POC Glucose 290 H 266 H 171 H Random Glucose Calcium Magnesium NT-Pro-B Natriuret Pep 10/06/25 10/06/25 08:39 11:39 WBC 4.7 L RBC 4.29 L Hgb 12.9 L Hct 38.9 L MCV 90.7 MCH 30.1 MCHC 33.2 RDW 13.2 Plt Count 255 MPV 11.0 Absolute Nucleated RBC 0.000 Nucleated RBC % (auto) 0.0 Sodium 137 Potassium 3.8 Chloride 100 Carbon Dioxide 33 H Anion Gap 8 L BUN 22 H Creatinine 0.99 Estim Creat Clear Calc 69.9 Estimated GFR > 60 POC Glucose 210 H Random Glucose 226 H Calcium 7.7 L Magnesium 1.8 NT-Pro-B Natriuret Pep 57232.0 H Assessment and Plan (1) Congestive heart failure: Qualifiers: Heart failure type: systolic Status: Acute (2) Cardiomyopathy: Status: Acute Plan Pleasant 60 year gentleman presenting with lower extremity edema and severe LV dysfunction on echocardiography has been noted. Clinically he appears to be more or less euvolemic at this stage. I think he can be transitioned to oral Lasix 40 mg daily from tomorrow. He is on Jardiance and lisinopril 40 mg daily. If he is able to afford Entresto then lisinopril can be held for 36 hours and he can be transitioned to Entresto otherwise continue lisinopril. Add back his carvedilol 6.25 mg twice a day. If BP stable with this then we will add spironolactone 25 mg daily. He will need ischemic evaluation as outpatient. Thank you for allowing me to participate in the care of your patient. Please feel free to contact me if you have any questions. Procedures Date of Service Date of Service: 10/06/25
--- NOTE | 2025-10-06 13:38 | HO.PM.IMPN ---
Subjective Subjective Date of Service: 10/06/25 Interval History: Patient seen examined at bedside this morning, patient on IV diuretics, this time lower extremity and sacral edema greatly improved. Continues with elevated BNP. TTE showing heart failure with reduced ejection fraction. Review of Systems Review of Systems: Yes all other systems are reviewed and are negative Physical Exam Exam: Exam: General: AxOx3, No acute distress Head: AT/NC ENT: Moist mucous membranes Neck: supple CVS; RRR, S1 S2 normal Lungs: Clear bilateral breath sounds, no wheezes or crackles Abd: Soft non tender, non distended Ext: No sacral edema and no calf tenderness MSK: moving all 4 limbs Skin: Lower extremity edema, improved Psych: Cooperative with exam Neurology: no focal deficit Vital Signs: Vital Signs: Last Vital Signs Temp 98.3 F 10/06/25 12:00 Pulse 84 10/06/25 12:00 Resp 18 10/06/25 12:00 BP 139/86 10/06/25 12:00 Pulse Ox 97 10/06/25 12:00 O2 Del Method Room Air 10/06/25 12:00 BMI result Body Mass Index 20.0 Objective Data Active Medications Acetaminophen (Acetaminophen 325 Mg Tablet) 650 mg PO Q6H PRN PRN Reason: Pain, Mild 1-3,fever,headache Aspirin (Aspirin Enteric Coated 81 Mg Tablet.) 81 mg PO DAILY [facility] Last Admin: 10/06/25 07:51 Dose: 81 mg Documented By: MIRANDA Atorvastatin Calcium (Atorvastatin Calcium 80 Mg Tablet) 80 mg PO BEDTIME [facility] Last Admin: 10/05/25 21:47 Dose: 80 mg Documented By: CHUCK Calcium Carbonate (Calcium Carbonate 750 Mg Tab.Chew) 750 mg PO Q4H PRN PRN Reason: Heartburn Dextrose (Dextrose 50 % 25 Gm/50 Ml Syringe) 25 gm IVPUSH Q15M PRN; Protocol PRN Reason: per Hypoglycemia Standing Ord. Empagliflozin (Empagliflozin 10 Mg Tablet) 10 mg PO DAILY [facility] Last Admin: 10/06/25 07:51 Dose: 10 mg Documented By: MIRANDA Furosemide (Furosemide 40 Mg Tablet) 40 mg PO BID@0900,1800 [facility]; Protocol Glucose (Glucose Gel 15 Gm Gel..Gram.) 15 gm PO Q15M PRN; Protocol PRN Reason: per Hypoglycemia Standing Ord. Heparin Sodium (Porcine) (Heparin Sodium,Porcine 5,000 Unit/Ml Vial) 5,000 unit SUBCUT Q12H [facility] Last Admin: 10/06/25 05:34 Dose: 5,000 unit Documented By: CHUCK Insulin Glargine (Insulin Glargine,Hum.Rec.Anlog 100 Unit/Ml 10 Ml Vial) 10 unit SUBCUT BEDTIME [facility] Last Admin: 10/05/25 21:48 Dose: 10 unit Documented By: CHUCK Insulin Human Lispro (Insulin Lispro 100 Unit/Ml 3 Ml Vial) 0 unit SUBCUT QIDACHS [facility]; Protocol Last Admin: 10/06/25 12:06 Dose: 4 unit Documented By: MIRANDA Lisinopril (Lisinopril 40 Mg Tablet) 40 mg PO DAILY [facility]; Protocol Loratadine (Loratadine 10 Mg Tablet) 10 mg PO DAILY [facility] Last Admin: 10/06/25 07:51 Dose: 10 mg Documented By: MIRANDA Magnesium Hydroxide (Milk Of Magnesia 30 Ml Oral.Susp) 30 ml PO DAILY PRN PRN Reason: Constipation Magnesium Hydroxide (Milk Of Magnesia 30 Ml Oral.Susp) 30 ml PO DAILY PRN PRN Reason: Constipation Melatonin (Melatonin 3 Mg Tablet) 6 mg PO BEDTIME PRN PRN Reason: Insomnia Ondansetron HCl (Ondansetron Hcl 4 Mg/2 Ml Vial) 4 mg IVPUSH Q8H PRN PRN Reason: Nausea and Vomiting Oxycodone HCl (Oxycodone Hcl Immed Release 5 Mg Tablet) 5 mg PO Q4H PRN PRN Reason: Pain, Severe (Pain Scale 7-10) Last Admin: 10/06/25 08:02 Dose: 5 mg Documented By: MIRANDA Senna (Sennosides 8.6 Mg Tablet) 8.6 mg PO DAILY PRN PRN Reason: Constipation Sodium Chloride (0.9 % Sodium Chloride Flush 3 Ml Syringe) 3 ml IVFLUSH QSHIFT [facility] Last Admin: 10/06/25 07:52 Dose: 3 ml Documented By: MIRANDA Tramadol HCl (Tramadol Hcl 50 Mg Tablet) 50 mg PO Q4H PRN PRN Reason: Pain, Moderate(Pain Scale 4-6) Labs 10/06/25 08:39 10/06/25 08:39 Labs: Laboratory Results - last 24 hr 10/05/25 10/05/25 10/06/25 16:06 19:50 07:15 MCV MCH MCHC RDW Plt Count MPV Absolute Nucleated RBC Nucleated RBC % (auto) Anion Gap Estim Creat Clear Calc Estimated GFR POC Glucose 290 H 266 H 171 H Random Glucose Calcium Magnesium NT-Pro-B Natriuret Pep 10/06/25 10/06/25 08:39 11:39 MCV 90.7 MCH 30.1 MCHC 33.2 RDW 13.2 Plt Count 255 MPV 11.0 Absolute Nucleated RBC 0.000 Nucleated RBC % (auto) 0.0 Anion Gap 8 L Estim Creat Clear Calc 69.9 Estimated GFR > 60 POC Glucose 210 H Random Glucose 226 H Calcium 7.7 L Magnesium 1.8 NT-Pro-B Natriuret Pep 44625.0 H Assessment and Plan (1) Cardiomyopathy: Status: Acute (2) Congestive heart failure: Status: Acute Plan 60-year-old male who presented to hospital complaining of worsening shortness of breath and edema, with proBNP 57680, chest x-ray consistent with heart failure. Patient initiate on IV lasix with improvement of edema CHF exacerbation, suspect medical noncompliance, improving HFrEF with EF of 20-25% -proBNP on admission 25,183->14,942 -chest x-ray consistent with heart failure, US negative for DVT -status post 40 mg of IV Lasix and nitro given in the ED, we will give additional 40 at this time -Transitioned from IV lasix to PO Lasix -cardiology reconsulted -continue w/ telemetry -we will monitor for any signs of hypoxia Hypertension, chronic -S/p IV lasix, transitioned to PO lasix, will continue with jardiance, initiated lisinopril 40mgqd FEN: NI, replete as needed, cardiac GI PPx: Not indicated DVT PPx: Heparin and SCDs Code Status: Full Code Total time managing care of this patient today: 55 minutes. Quality Stroke Does the patient have a stroke diagnosis?: No VTE Prior VTE?: No VTE Risk Level:: Medical - moderate - high VTE Device Contraindication: N/A - Device Ordered VTE Drug Contraindication: N/A - Med Ordered
[2025-10-06 16:20] LABS: Glucose, Whole Blood 282 mg/dL (60-115)
[2025-10-06 20:30] LABS: Glucose, Whole Blood 158 mg/dL (60-115)
[2025-10-06] MEDS: Insulin Glargine,Hum.rec.anlog 100 UNIT/ML 10 ML VIAL 10 UNIT SUBCUT (21:49)
[2025-10-07 03:09] VITALS: BP 154/84; PULSE 88; RESP 18; TEMP 36.7; O2SAT 96
[2025-10-07 07:30] LABS: Glucose, Whole Blood 127 mg/dL (60-115)
[2025-10-07 08:00] VITALS: BP 130/70; PULSE 87; RESP 21; O2SAT 98
[2025-10-07] MEDS: Aspirin Enteric Coated 81 MG TABLET.DR PO (08:27)
[2025-10-07] MEDS: oxyCODONE HCl Immed Release 5 MG TABLET PO (08:27)
[2025-10-07] MEDS: 0.9 % Sodium Chloride Flush 3 ML SYRINGE IVFLUSH (08:32)
[2025-10-07 11:29] LABS: Glucose, Whole Blood 275 mg/dL (60-115)
[2025-10-07 11:57] VITALS: BP 145/87; PULSE 92; RESP 16; TEMP 36.9; O2SAT 97
--- NOTE | 2025-10-07 12:49 | PM.PNCARD ---
Subjective Subjective Date of Service: 10/07/25 Interval history: Seen and examined at bedside. Doing well. Wll be going home today. Physical Exam Vital Signs: Last Vital Signs Temp 98.5 F 10/07/25 11:57 Pulse 92 10/07/25 11:57 Resp 16 10/07/25 11:57 BP 145/87 H 10/07/25 11:57 Pulse Ox 97 10/07/25 11:57 O2 Del Method Room Air 10/07/25 11:57 BMI result Body Mass Index 20.0 GENERAL APPEARANCE: in no acute distress, pleasant. NECK: no carotid bruit, no jugular venous distention. SKIN: no suspicious lesions, warm and dry. HEART: no murmurs, regular rate and rhythm. LUNGS: clear to auscultation bilaterally. ABDOMEN: soft, nontender. EXTREMITIES: 1+ edema. PERIPHERAL PULSES: equal. NEUROLOGIC: No gross deficits, AAO X 3 Objective Labs and Meds 10/06/25 08:39 10/06/25 08:39 Lab results: Laboratory Results - last 24 hr 10/06/25 10/06/25 10/07/25 16:05 20:20 07:16 POC Glucose 282 H 158 H 127 H 10/07/25 11:18 POC Glucose 275 H Progress Note: A&P Assessment and plan (1) Cardiomyopathy: Status: Acute (2) Congestive heart failure: Status: Acute Plan 60-year-old gentleman presenting with congestive heart failure and severe cardiomyopathy by echocardiography. He has background of diabetes and hypertension. He has done well with diuresis and overall is euvolemic at this stage. Going home with oral diuretics, Farxiga, lisinopril and carvedilol. We will arrange follow-up in the office and do ischemic evaluation as outpatient. Thank you for allowing me to participate in the care of your patient. Please feel free to contact me if you have any questions. Time Spent With Patient Time: Total time managing care of this patient today ____ minutes. Progress Note: Quality Stroke Does the patient have a stroke diagnosis?: No Procedures Date of Service Date of Service: 10/07/25
--- NOTE | 2025-10-07 12:56 | P.DS_ITS ---
DS: Providers Provider Date of Service: 10/07/25 Date of admission: 10/03/25 18:30 Date of discharge: 10/07/25 Primary care physician: Walt Lang MD Consults: 10/06/25 09:01 Consult to Cardiology Routine Consulting Provider: [facility] [place] [place] [facility] Reason for consultation: Heart failure Has provider been notified: No Attending physician on discharge: Victorino Bang Discharging clinician: Victorino Bang DS: Diagnosis Discharge Diagnosis (1) Cardiomyopathy: Status: Acute (2) Congestive heart failure: Status: Acute DS: Summary Hospital Course Hospital Course: HPI:60-year-old male with past medical history significant for heart failure, who presented to the hospital complaining of worsening shortness of breath and edema has been going on for the past week, patient had a long term facility, mentioned that he requires to use pillows to avoid getting shortness of breath. Patient also mentions ascending lower extremity edema. Patient states that he was previously seen by her doctor, however did not take medications prescribed to him for his heart disease. In the ED chest x-ray with CHF and small left pleural effusion, on labs proBNP [id number]. Patient admitted for heart failure exacerbation. hospital course:60-year-old male who presented to hospital complaining of worsening shortness of breath and edema, with proBNP [id number], chest x-ray consistent with heart failure-Patient was admitted for CHF exacerbation(CHF with a reduced EF). Patient initiate on IV lasix with improvement of edema: With the above management patient seems to be improved significantly, diuresed well, not short of breath, not hypoxic, asymptomatic currently. Echo shows EF of 20-25%.Seen by cardiology: Recommended to continue Lasix 40 mg q.d., continue home lisinopril, Farxiga, [place] [id number]. Cardiology may arrange outpatient appointment for further management. Monitor BMP, BNP outpatient. plan: CHF education given-if gains weight 2 lb or more in a week-will need outpatient Lasix dosing assessment with PCP. Consider Follow-up with cardiology outpatient Continue Lasix 40 mg daily, monitor BMP closely. Continue lisinopril, Lasix,coreg.moniter bmp outpatient ,consider outpatient switch to entersto if possible . follow up with pcp and cardiology may arrange their own appointment. Assessment and plan coordination time spent 45 minute. Time Attestation Total time managing care of this patient today: 45 mintues. Discharge Coordination Time (in mins): 45 minute Quality: Safe Use of Opioids Does Pt have an Active Cancer Diagnosis on the Problem List?: No Quality: Stroke Does the patient have a stroke diagnosis?: No Physical Exam Exam: Exam: Appearance: Alert.? Oriented X3. cvs: rrr, [id number]. res: clear to auscultation ,no rhonchii or wheezing abd: no rebound or guarding ,nt, bs present. ext pulses present , no cyanosis neuro: axo3 , nonfocal. Vital Signs: Vital Signs: Last Vital Signs Temp 98.5 F 10/07/25 11:57 Pulse 92 10/07/25 11:57 Resp 16 10/07/25 11:57 BP 145/87 H 10/07/25 11:57 Pulse Ox 97 10/07/25 11:57 O2 Del Method Room Air 10/07/25 11:57 BMI result Body Mass Index 20.0 DS: Data Data Completed and Pending Labs on day of discharge: Laboratory Results - last 24 hr 10/06/25 10/06/25 10/07/25 16:05 20:20 07:16 POC Glucose 282 H 158 H 127 H 10/07/25 11:18 POC Glucose 275 H Imaging Chest x-ray: My impression: CXr: Small left pleural effusion. CHF. Prior reverse left shoulder arthroplasty. venous dupplex: 1. Negative for bilateral lower extremity deep vein thrombosis. echo: Conclusions: - Normal left ventricular cavity size. There is mildly increased left ventricular wall thickness. The left ventricular systolic function is severely decreased. The visually estimated ejection fraction is between 20-25%. - E/E prime ratio is between 8 and 15 consistent with indeterminate filling pressures. - The basal anteroseptal and mid anteroseptal segments are akinetic. - Normal right ventricular cavity size and systolic function. - The left atrium is moderately dilated. - There is mild dilatation of the ascending aorta measuring 4.20 cm. Findings Left Ventricle Normal left ventricular cavity size. There is mildly increased left ventricular wall thickness. The left ventricular systolic function is severely decreased. The visually estimated ejection fraction is between 20 25%. There is evidence of regional wall motion abnormalities. There is severe global hypokinesis. Abnormal diastolic function is noted. Spectral Doppler is indicative of a pseudonormal filling pattern. E/E prime ratio is between 8 and 15 consistent with indeterminate filling pressures. Wall Motion Rest Echo Findings The basal anteroseptal and mid anteroseptal segments are akinetic. Right Ventricle Normal right ventricular cavity size and systolic function. Atria The left atrium is moderately dilated. The right atrium is normal in size. Aortic Valve The aortic valve was not well visualized. There is no aortic valve stenosis. There is mild aortic valve regurgitation. Mitral Valve Normal mitral valve structure and function. There is no mitral valve regurgitation. There is no mitral valve stenosis. Pulmonic Valve The pulmonic valve is likely normal. Tricuspid Valve Likely normal tricuspid valve structure and function. Tricuspid regurgitation envelope is inadequate for calculation of right ventricular systolic pressure. Normal right atrial pressure. Great Vessels There is mild dilatation of the ascending aorta measuring 4.20 cm. Venous The inferior vena cava is normal in size and collapses greater than 50% with inspiration. Pericardium/Pleural There is no evidence of pericardial effusion. Prior Study Comparison No prior study available for comparison. Discharge Plan Discharge Anticipated Discharge Date/Time: 10/07/25 12:26 Patient Disposition: er [facility] Discharge Diagnosis: CHF exacerbation Referrals: Walt Lang MD [Primary Care Provider, Internal Medicine] - 1 Week Discharge Medications: New furosemide 40 mg Tablet 40 mg PO DAILY Qty: 90 0RF Protocol: Hold for SBP< HOLD for SBP < : 90 Continued atorvastatin 80 mg tablet 80 mg PO BEDTIME carvedilol 6.25 mg tablet 6.25 mg PO BID Protocol: Hold for SBP< HOLD for SBP < : 90 oxycodone 5 mg tablet 15 mg PO Q4H PRN (Reason: Severe Pain (Scale Score 7-10)) insulin glargine [Lantus Solostar U-100 Insulin] 100 unit/mL (3 mL) insulin pen 10 unit subcut BEDTIME dapagliflozin propanediol [Farxiga] 10 mg tablet 10 mg PO DAILY insulin lispro 100 unit/mL insulin pen, half-unit 1 sliding scale dose SUBCUT AC sennosides [senna] 8.6 mg Tablet 8.6 mg PO DAILY PRN (Reason: Constipation) acetaminophen 325 mg Tablet 650 mg PO Q4H PRN (Reason: Pain or Fever) polyethylene glycol 3350 17 gram Powder In Packet 17 g PO DAILY PRN (Reason: Constipation) cetirizine 10 mg Tablet 10 mg PO DAILY polyvinyl alcohol 1.4 % Drops 1 drp OPHTHALMIC (EYE) BID aspirin 81 mg Tablet,Delayed Release (Dr/Ec) 81 mg PO DAILY guaifenesin 100 mg/5 mL Liquid 100 mg PO Q4H PRN (Reason: Cough) magnesium hydroxide 400 mg/5 mL Suspension 5 ml PO DAILY PRN (Reason: Constipation) bisacodyl 10 mg Suppository 10 mg [place] DAILY PRN (Reason: Constipation) docusate sodium 100 mg Capsule 100 mg PO BID lisinopril 40 mg Tablet 40 mg PO DAILY Discharge Orders: Discharge Order (Routine); Ordered 10/07/25 Ordered By: Victorino Bang Diet: Advance to usual diet Activity on Discharge: As tolerated Stand Alone Forms: Patient Portal Discharge page Print Language: Omani Other Ambulatory Orders: Basic Metabolic Panel (Routine) Timeframe: 1 Week Facility: [facility] - Location: Laboratory Ordered By: Victorino Bang NT Pro B Type Natriuretic Pept (Routine) Timeframe: 1 Week Facility: [facility] - Location: Laboratory Ordered By: Victorino Bang Care Plan Goals: CHF education given-if gains weight 2 lb or more in a week-will need outpatient Lasix dosing assessment with PCP. Consider Follow-up with cardiology outpatient Continue Lasix 40 mg daily, monitor BMP closely. Continue lisinopril, Lasix,coreg.moniter bmp outpatient ,consider outpatient switch to entersto if possible . follow up with pcp and cardiology may arrange their own appointment. Health Concerns: As above. Lasix 40 mg q.day CHF education as above. Follow up with PCP/Cardiology outpatient. Plan of Treatment: As above. Assessment: As above.
--- NOTE | 2025-10-07 13:09 | MHC.CM.PN ---
Per MD, Patient is medically cleared for dc to SNF/LTC today. Patient will return to LTC @ [facility] today at 3:30 PM, via [facility]. CM addressed IMM with Patient at bedside; Patient has already informed his Brother/HCP/Rocco himself, of the dc plan.
== END 2025-10-07 16:19 | DRG 291 ==
LOC: HO.ED 18:59 → HO.EDOVER 19:03 → HO.IMC 19:17
PROVIDERS: Admitting Provider Student in an Organized Health Care Education/Training Program; Emergency Provider Emergency Medicine; PCP Family Medicine; Visit Provider Internal Medicine
DX: I11.0 Hypertensive heart disease with heart failure (principal); I50.23 Acute on chronic systolic (congestive) heart failure; E11.9 Type 2 diabetes mellitus without complications; I42.9 Cardiomyopathy, unspecified; F17.210 Nicotine dependence, cigarettes, uncomplicated; Z91.148 Patient's other noncompliance with medication regimen for other reason; Z20.822 Contact with and (suspected) exposure to COVID-19; Z71.6 Tobacco abuse counseling; Z79.4 Long term (current) use of insulin; Z79.82 Long term (current) use of aspirin; Z79.899 Other long term (current) drug therapy
CPT/HCPCS: 36415; 71046; 80048; 80053; 82947; 83735; 83880; 84443; 84484; 85025; 85027; 87637; 93005; 93306; 93970; 99285; J1171; J1644; J1938; Q9957

== ENCOUNTER → 2025-10-03 16:26 | Outpatient (BNV) | payer OTHER, SELFPAY | PROVIDERS: Emergency Provider Emergency Medicine; PCP Family Medicine; Visit Provider Radiology Diagnostic Radiology | DX: R60.0 Localized edema (principal); I50.9 Heart failure, unspecified; J90 Pleural effusion, not elsewhere classified; Z96.612 Presence of left artificial shoulder joint | CPT/HCPCS: 71046; 93970 ==

== ENCOUNTER → 2025-10-03 16:26 | Outpatient (BNV) | payer OTHER, SELFPAY | PROVIDERS: Admitting Provider Student in an Organized Health Care Education/Training Program; Emergency Provider Emergency Medicine; PCP Family Medicine; Visit Provider Internal Medicine | DX: R94.31 Abnormal electrocardiogram [ECG] [EKG] (principal); M79.89 Other specified soft tissue disorders | CPT/HCPCS: 93010 ==

== ENCOUNTER → 2025-10-03 16:46 | Outpatient (BNV) | payer OTHER, SELFPAY | PROVIDERS: Emergency Provider Emergency Medicine; PCP Family Medicine; Visit Provider Student in an Organized Health Care Education/Training Program | DX: I50.9 Heart failure, unspecified (principal); I42.9 Cardiomyopathy, unspecified | CPT/HCPCS: 99239 ==

== ENCOUNTER 2025-10-03 18:30 | Outpatient (BNV) | payer MEDICARE, MEDICAID, SELFPAY | END 2025-10-05 07:00 | PROVIDERS: Admitting Provider Student in an Organized Health Care Education/Training Program; Emergency Provider Emergency Medicine; PCP Family Medicine; Visit Provider Internal Medicine Cardiovascular Disease | DX: I51.7 Cardiomegaly (principal); I51.89 Other ill-defined heart diseases; I77.810 Thoracic aortic ectasia | CPT/HCPCS: 93306 ==

== ENCOUNTER → 2025-10-03 18:30 | Outpatient (BNV) | payer MEDICARE, MEDICAID, SELFPAY | PROVIDERS: Admitting Provider Student in an Organized Health Care Education/Training Program; Emergency Provider Emergency Medicine; PCP Family Medicine; Visit Provider Internal Medicine Cardiovascular Disease | DX: I42.9 Cardiomyopathy, unspecified (principal); I50.9 Heart failure, unspecified | CPT/HCPCS: 99233 ==

== ENCOUNTER 2025-10-10 10:23 | Emergency (ER) | payer MEDICARE, MEDICAID, SELFPAY ==
[2025-10-10] VITALS (8 sets, daily range): BP systolic 122–152; BP diastolic 66–86; PULSE 71–81; RESP 13–16; TEMP 36.3–36.9; O2SAT 96–100; BMI 19.8
--- NOTE | ~2025-10-10 | XR_ITS ---
CLINICAL HISTORY: SOB 1 view chest x-ray Comparison: CR - XR CHEST 2V - 10/03/25 16:58 EST Findings: Two films were obtained. No consolidation, pneumothorax or large pleural effusion. Left costophrenic angle blunting. Bilateral perihilar opacities. Stable cardiomegaly. No acute fracture. Left shoulder reverse total arthroplasty. IMPRESSION: 1. Bilateral perihilar opacities secondary to pneumonitis or fluid overload. 2. Left costophrenic angle blunting is suggestive of a tiny pleural effusion. This document has been electronically signed by: Brittanie Heck DO on 10/10/2025 11:28:54
--- NOTE | ~2025-10-10 | CT_ITS ---
CLINICAL HISTORY: ? PE Exam: Contrast-enhanced chest CT pulmonary angiogram with multiplanar reformats. Comparison: None. Findings: There is no pulmonary embolism. Evaluation for aortic dissection is limited by bolus timing. No mediastinal or hilar masses or adenopathy. No pleural or pericardial effusions. Images below the diaphragms reveal no acute abnormalities. Lungs are free of focal consolidation. There is trace bilateral dependent atelectasis. No pneumothorax. Airways are patent. Osseous structures reveal no destructive osseous lesions. Impression: 1. No pulmonary embolism, aortic dissection or acute pulmonary disease. This document has been electronically signed by: Rashi Sosa MD on 10/10/2025 15:27:46
--- NOTE | 2025-10-10 10:25 | ECG_ITS ---
Test Reason : CHEST PAIN Blood Pressure : */* mmHG Vent. Rate : 83 BPM Atrial Rate : 83 BPM P-R Int : 162 ms QRS Dur : 98 ms QT Int : 400 ms P-R-T Axes : 73 -53 116 degrees QTcB Int : 470 ms Normal sinus rhythm Left axis deviation Minimal voltage criteria for LVH, may be normal variant ( Lenore product ) ST & T wave abnormality, consider lateral ischemia Prolonged QT Abnormal ECG When compared with ECG of 03-Oct-2025 16:29, QRS axis Shifted left Nonspecific T wave abnormality no longer evident in Inferior leads Referred By: Johnnie Perea Electronically Signed By: ORACIO TRIMBLE
--- NOTE | 2025-10-10 10:34 | ED_ITS ---
HPI - SOB/Dyspnea General Chief Complaint: Dyspnea Stated Complaint: CP Time Seen by Provider: 10/10/25 10:25 Source: patient Mode of arrival: EMS Limitations: no limitations History of Present Illness HPI Narrative: This is a 60 years old the patient with a history of cardiomyopathy with congestive heart failure with low ejection fraction presented to the emergency room with a chief complaint of shortness of breath. He lives in the group home and he has been short of breath since last night. He was admitted recently discharged on October 07 he is on 40 mg of Lasix Pertinent past history: congestive heart failure Onset (ago): day(s) (1) Timing: constant Severity: moderate Exacerbating factors: nothing Relieving factors: nothing Associated symptoms: denies other symptoms Related Data Home oxygen amount: none Home Medications ?Medication ?Instructions ?Recorded ?Confirmed acetaminophen 325 mg tablet 650 mg PO Q4H PRN Pain or Fever 10/04/25 10/04/25 aspirin 81 mg tablet,delayed 81 mg PO DAILY 10/04/25 1 12/04/24 release atorvastatin 80 mg tablet 80 mg PO BEDTIME 10/04/25 bisacodyl 10 mg rectal suppository 10 mg [place] DAILY PRN Constipation 10/04/25 10/04/25 carvedilol 6.25 mg tablet 6.25 mg PO BID 10/04/2509/13 cetirizine 10 mg tablet 10 mg PO DAILY 10/04/2509/13 dapagliflozin propanediol 10 mg 10 mg PO DAILY 5 10/04/25 tablet (Farxiga) docusate sodium 100 mg capsule 100 mg PO BID 10/04/25 10/04/25 guaifenesin 100 mg/5 mL oral liquid 100 mg PO Q4H PRN Cough 10/04/25 10/04/25 insulin glargine 100 unit/mL (3 10 unit subcut BEDTIME 10/04/25 10/04/25 mL) subcutaneous pen (Lantus Solostar U-100 Insulin) insulin lispro 100 unit/mL 1 sliding scale dose subcut AC 10/04/25 10/04/25 subcutaneous half-unit pen lisinopril 40 mg tablet 40 mg PO DAILY 10/04/2509/13 magnesium hydroxide 400 mg/5 mL 5 ml PO DAILY PRN Cons tipation 10/04/25 10/04/25 oral suspension oxycodone 5 mg tablet 15 mg PO Q4H PRN Severe Pain 10/04/25 10/04/25 (Scale Score 7-10) polyethylene glycol 3350 17 gram 17 g PO DAILY PRN Con stipation 10/04/25 10/04/25 oral powder packet polyvinyl alcohol 1.4 % eye drops 1 drp ophthalmic (ey e) BID 10/04/25 10/04/25 sennosides 8.6 mg tablet (senna) 8.6 mg PO DAILY PRN C onstipation 10/04/25 10/04/25 Previous Rx's ?Medication ?Instructions ?Recorded furosemide 40 mg tablet 40 mg PO DAILY #90 tabs 09/13 05/06 Allergies Allergy/AdvReac Type Severity Reaction Status Date / Time No Known Allergies Allergy Verified 10/10/25 10:42 Review of Systems 2 ENT: Reports system reviewed and no additional complaints, except as documented Respiratory: Respiratory: Reports as per [facility] Past Medical History Attestation statement: The following information was validated with the patient. [facility] Narrative: Cardiomyopathy/CHF diabetes Social History Social History Household Members: Other Housing: Shelter Housing Other:: [facility] Alcohol intake: never Patient Tobacco Use Status: Current everyday Tobacco user Tobacco use type: Cigarette Cigarettes Per Day: 6 Substance Use Type: Marijuana service: No Physical Exam 2 Exam: Exam: Not acute distress looks well Vital Signs: Vital Signs: Last Vital Signs Temp 97.4 F 10/10/25 18:38 Pulse 75 10/10/25 18:38 Resp 14 10/10/25 18:38 BP 125/76 10/10/25 18:38 Pulse Ox 99 10/10/25 18:38 O2 Del Method Room Air 10/10/25 18:38 BMI result Body Mass Index 19.8 Const: General: cooperative Nutritional Appearance: average body habitus Orientation/consciousness: patient oriented x3 HEENT: Head: Yes normal to inspection Ears: hearing grossly normal bilaterally General nose exam: Normal external nose present Face and sinus: Yes normal facial exam Neck: Neck: Yes normal visual inspection Chest: Chest palpation & inspection: normal inspection of the chest Resp: Effort & Inspection: able to speak in complete sentences A uscultation: rhonchi Cardio: Jugular venous distension: no JVD Rate: regular rate Rhythm: r egular rhythm GI: Inspection: Yes normal to inspection Palpation (GI): Soft to palpation, not firm and nontender Skin: General skin exam: no rashes or lesions noted and elasticity normal Neuro: General: patient oriented x3 Course Reevaluation(s) Reevaluation #1: Patient remained stable his sat is 100% on room air BNP was noted I gave him 40 mg of IV furosemide. I think he can probably will be sent back to the group home mild bump he has furosemide to 40 mg twice a day for about 4 or 5 days. I do not think he needs to be admitted at this point we will discharge the patient back to the nursing facility Time: 16:01 Medications Administered Discontinued Medications Generic Name Dose Route Start Last Admin Trade Name Freq PRN Reason Stop Dose Admin Furosemide 40 mg 10/10/25 13:34 10/10/25 14:41 Furosemide 40 Mg/4 Ml Vial IVPUSH 10/10/25 13:35 40 mg STAT STA Administration Protocol Iohexol 100 ml 10/10/25 13:59 10/10/25 14:00 Iohexol 350 Mg/Ml 100 Ml Infus..Btl IV 10/10/25 14:00 65 ml ONCE ONE Administration Medical Decision Making Medical Decision Making [facility] Narrative: Patient with shortness of breath broad differential diagnosis including pneumonia congestive heart failure we will obtain chest x-ray labs EKG 16:02 patient is asymptomatic delta trop is flat, sat 100% on room air CTA no PE BNP is elevated I gave him a dose of IV Lasix I think he can be discharged back to the group home we will recommend to increase his Lasix to 40 b.i.d. for 4 days Differential Diagnosis Differential Diagnoses: The differential diagnosis associated with the presentation includes CHF/pneumonia/pneumothorax Admission/Observation Consideration of admission/observation: Escalation of care including admission/observation considered Lab Data [facility] Lab Attestation statement: I reviewed the patient's lab results. 10/10/25 10:57 10/10/25 10:57 Labs: Lab Results 10/10/25 10/10/25 Range/Units 10:57 14:33 WBC 5.9 (4.8-10.8) X10*3/uL RBC 4.01 L (4.60-5.80) X10*6/uL Hgb 12.3 L (14.0-18.0) g/dl Hct 37.1 L (42.0-52.0) % MCV 92.5 (80.0-98.0) fL MCH 30.7 (27.0-33.0) pg MCHC 33.2 (31.0-36.0) g/dl RDW 13.1 (11.0-16.0) % Plt Count 238 (160-400) X10*3/uL MPV 10.7 (9.4-12.4) fL Immature Gran % (Auto) 0.2 (0.0-0.4) % Neut % (Auto) 62.0 (45-73) % Lymph % (Auto) 21.2 (20-40) % [place] % (Auto) 9.9 (2-11) % Eos % (Auto) 5.7 H (0-4) % Baso % (Auto) 1.0 (0-2) % Lymph # (Auto) 1.3 (1.2-4.9) X10*3/uL [place] # (Auto) 0.6 (0.1-1.2) X10*3/uL Eos # (Auto) 0.3 (0.0-0.4) X10*3/uL Baso # (Auto) 0.1 (0.0-0.2) X10*3/uL Abs Immat Gran (auto) 0.01 (0.00-0.03) X10*3/uL Absolute Neuts (auto) 3.7 (2.0-8.3) x10*3/uL Absolute Nucleated RBC 0.000 (0.0-0.012) X10*3/uL Nucleated RBC % (auto) 0.0 (0.0-0.2) /100WBC D-Dimer High Sensitivty 792 NG/ML Sodium 137 (135-145) mmol/L Potassium 4.7 D (3.3-5.1) mmol/L Chloride 108 (96-108) mmol/L Carbon Dioxide 25 (22-29) mmol/L Anion Gap 9 L (12-20) BUN 36 H (9-16) mg/dL Creatinine 1.13 (0.5-1.4) mg/dL Estim Creat Clear Calc 60.7 Estimated GFR > 60 Random Glucose 265 H (60-115) mg/dL Calcium 8.2 L D (8.4-10.2) mg/dL Total Bilirubin 0.2 (0.0-1.0) mg/dL AST 27 (5-37) U/L ALT 21 (0-40) U/L Alkaline Phosphatase 143 H (39-117) U/L Troponin I High Sens 37.3 H 35.9 H (<3.5-35.0) ng/L NT-Pro-B Natriuret Pep 8876.1 H (<300) pg/mL Total Protein 5.2 L (6.5-8.0) g/dL Albumin 2.6 L (3.5-5.0) g/dL Independent Interpretation I performed an independent interpretation of an: EKG and CT Scan (CT reviewed by me no acute disease) Interpretation: EKG was reviewed interpreted by me as sinus rhythm rate 83 LVH with strain no significant changes from a prior tracing of October 03 Radiology Impression Discussion of test interpretation with radiology: I have reviewed the radiologist's reading. Radiologist Impression: Exam: Contrast-enhanced chest CT pulmonary angiogram with multiplanar reformats. Comparison: None. Findings: There is no pulmonary embolism. Evaluation for aortic dissection is limited by bolus timing. No mediastinal or hilar masses or adenopathy. No pleural or pericardial effusions. Images below the diaphragms reveal no acute abnormalities. Lungs are free of focal consolidation. There is trace bilateral dependent atelectasis. No pneumothorax. Airways are patent. Osseous structures reveal no destructive osseous lesions. Impression: 1. No pulmonary embolism, aortic dissection or acute pulmonary disease. This document has been electronically signed by: Rashi Sosa MD on 10/10/2025 15:27:46 Dictated By: Rashi Sosa MD Signed By: <Electronically signed by Rashi Sosa MD in OV> 10/10/25 1528 DD/ 1527 External Record Review External record reviewed: Inpatient record Discharge Plan Discharge Clinical Impression: Chest pain, Shortness of breath Patient Disposition: [facility] Swing Bed Instructions: Chest Pain (DC) Additional Instructions: Follow-up with your primary care physician increased the Lasix to 40 b.i.d. for 4 days return if worse Prescriptions: No Action atorvastatin 80 mg tablet 80 mg PO BEDTIME carvedilol 6.25 mg tablet 6.25 mg PO BID Protocol: Hold for SBP< HOLD for SBP < : 90 oxycodone 5 mg tablet 15 mg PO Q4H PRN (Reason: Severe Pain (Scale Score 7-10)) insulin glargine [Lantus Solostar U-100 Insulin] 100 unit/mL (3 mL) insulin pen 10 unit subcut BEDTIME dapagliflozin propanediol [Farxiga] 10 mg tablet 10 mg PO DAILY insulin lispro 100 unit/mL insulin pen, half-unit 1 sliding scale dose SUBCUT AC sennosides [senna] 8.6 mg Tablet 8.6 mg PO DAILY PRN (Reason: Constipation) acetaminophen 325 mg Tablet 650 mg PO Q4H PRN (Reason: Pain or Fever) polyethylene glycol 3350 17 gram Powder In Packet 17 g PO DAILY PRN (Reason: Constipation) cetirizine 10 mg Tablet 10 mg PO DAILY polyvinyl alcohol 1.4 % Drops 1 drp OPHTHALMIC (EYE) BID aspirin 81 mg Tablet,Delayed Release (Dr/Ec) 81 mg PO DAILY guaifenesin 100 mg/5 mL Liquid 100 mg PO Q4H PRN (Reason: Cough) magnesium hydroxide 400 mg/5 mL Suspension 5 ml PO DAILY PRN (Reason: Constipation) bisacodyl 10 mg Suppository 10 mg [place] DAILY PRN (Reason: Constipation) docusate sodium 100 mg Capsule 100 mg PO BID lisinopril 40 mg Tablet 40 mg PO DAILY furosemide 40 mg Tablet 40 mg PO DAILY Qty: 90 0RF Protocol: Hold for SBP< HOLD for SBP < : 90 Referrals: Walt Lang MD [Primary Care Provider, Internal Medicine] - 10/12/25 Interventions: ED Discharge Assessment Last Done: 10/10/25 18:38 Discharge Date/Time: 10/10/25 18:38 Print Language: Faroese
--- OUTSIDE RECORDS SUMMARY | 2025-10-10 10:54 | XMS_ITS | Clinical Summary ---
Author Organization [facility] Address [address] [place] [address] Care Team Providers Care Lead Developer Name Role Phone Ac Garcia MD Primary Care Provider Allergies No known active allergies Medications Medication Sig Dispensed Refills Start Date End Date Status ibuprofen (ADVIL,MOTRIN) 400 MG tablet Take 1 tablet (400 mg total) by mouth every 6 (six) hours as needed for pain. 30 tablet 0 04/12/2015 Active Insulin Pen Needle (Pen [place]) 30G X 5 MM MISC 1 Device by Does not apply route 2 (two) times a day after meals. 60 each 11 12/23/2023 Active Continuous Blood Gluc Pesticide Applicator (FreeStyle [place] [address] [place]) KEVIN 1 each by Does not apply [...] age to complete this topic Care Teams Lead Developer Relationship Specialty Start Date End Date Ac Garcia MD PCP - General Family Medicine 12/23/23
--- OUTSIDE RECORDS SUMMARY | 2025-10-10 10:54 | XMS_ITS | Clinical Summary ---
Author Organization [address] Address [address] [place] [phone] Phone Care Team Providers Care Cuff Maker Name Role Phone Ac Garcia MD Primary Care Provider [phone] Social History Tobacco Use Types Packs/Day Years [...] mg/dL LAB CHEMISTRY METHOD 09/24/2024 12:[address] [facility] Triglycerides 197(H) 0 - 150 mg/dL LAB CHEMISTRY METHOD 09/24/2024 12:46 PM EST [facility] HDL 56 >=40 mg/dL LAB CHEMISTRY METHOD 09/24/2024 12:[address] [facility] LDL Calculated 192(H) 0 - 100 mg/dL LAB CHEMISTRY METHOD 09/24/2024 12:[address] [facility] VLDL Cholesterol Patel 39.4 mg/dL LAB CHEMISTRY METHOD 09/24/2024 12:[address] [facility] Non HDL Chol. (LDL+VLDL) 231(H) <145 mg/dL LAB CHEMISTRY METHOD 09/24/2024 12:[address] [facility] Chol/HDL Ratio 5.1(H) 0.0 - 4.4 LAB CHEMISTRY METHOD 09/24/2024 12:[address] [facility] Blood Venous blood specimen / Unknown Venipuncture / Unknown 09/24/2024 6:37 AM EST 09/24/2024 10:28 AM EST us Walt Lang MD LAB BLOOD ORDERABLES Final Resul t [facility] [address] [place] [address], * (ABNORMAL) Hemoglobin A1c (09/24/2024 6:37 AM EST) Hemoglobin A1C 7.7(H) <6.5 % LAB CHEMISTRY METHOD 09/24/2024 2:26 PM EST [facility] Mean Bld Glu Estim. 174 mg/dL LAB CHEMISTRY METHOD 09/24/2024 2:[address] [facility] Blood Venous blood specimen / Unknown Venipuncture / Unknown 09/24/2024 6:37 AM EST 09/24/2024 10:28 AM EST us Walt Lang MD LAB BLOOD ORDERABLES Final Resul t [facility] [address] [place] [address], * (ABNORMAL) Comprehensive metabolic panel (09/24/2024 6:37 AM EST) Sodium 136 133 - 145 mmol/L LAB CHEMISTRY METHOD 09/24/2024 12:[address] [facility] Potassium 4.1 3.5 - 5.5 mmol/L LAB CHEMISTRY METHOD 09/24/2024 12:[address] [facility] Chloride 103 96 - 110 mmol/L LAB CHEMISTRY METHOD 09/24/2024 12:[address] [facility] CO2 27 21 - 32 mmol/L LAB CHEMISTRY METHOD 09/24/2024 12:[address] [facility] Anion Gap 6 3 - 11 LAB CHEMISTRY METHOD 09/24/2024 12:[address] [facility] Glucose 239(H) 70 - 100 mg/dL LAB CHEMISTRY METHOD 09/24/2024 12:[address] [facility] BUN 13 5 - 25 mg/dL LAB CHEMISTRY METHOD 09/24/2024 12:[address] [facility] Creatinine 0.37(L) 0.70 - 1.30 mg/dL LAB CHEMISTRY METHOD 09/24/2024 12:[address] [facility] eGFR 128 >=60 mL/min/1. 73m2 LAB CHEMISTRY METHOD 09/24/2024 12:[address] [facility] Comment:Calculation based on the Chronic Kidney Disease Epidemiology Collaboration (CKD-EPI) equation refit without adjustment for race. BUN/Creatinine Ratio 35.1 LAB CHEMISTRY METHOD 09/24/2024 12:[address] [facility] Calcium 8.4(L) 8.5 - 10.5 mg/dL LAB CHEMISTRY METHOD 09/24/2024 12:[address] [facility] AST (SGOT) 17 10 - 42 unit/L LAB CHEMISTRY METHOD 09/24/2024 12:[address] [facility] ALT (SGPT) 21 10 - 60 unit/L LAB CHEMISTRY METHOD 09/24/2024 12:[address] [facility] Alkaline Phosphatase 206(H) 42 - 121 unit/L LAB CHEMISTRY METHOD 09/24/2024 12:[address] [facility] Total Protein 5.5(L) 6.0 - 8.0 g/dL LAB CHEMISTRY METHOD 09/24/2024 12:[address] [facility] Albumin 2.3(L) 3.2 - 5.0 g/dL LAB CHEMISTRY METHOD 09/24/2024 12:[address] [facility] Total Bilirubin 0.3 0.0 - 1.4 mg/dL LAB CHEMISTRY METHOD 09/24/2024 12:[address] [facility] Blood Venous blood specimen / Unknown Venipuncture / Unknown 09/24/2024 6:37 AM EST 09/24/2024 10:28 AM EST us Walt Lang MD LAB BLOOD ORDERABLES Final Resul t [facility] [address] [place] [address], from Last 3 Months or Most Recently Relevant to Health Maintenance Insurance [facility] NATHANAEL JEAN [id number] MEDICA[place] Care Teams Cuff Maker Relationship Specialty Start Date End Date Ac Garcia MD [address] [place] [phone] PCP - General Internal Medicine 01/20/25
--- OUTSIDE RECORDS SUMMARY | 2025-10-10 10:54 | XMS_ITS | Encounter Summary ---
Author Organization [facility] Address [address] [place] [address] Care Team Providers Care Filing Or Registry Clerk Name Role Phone Ac Garcia MD Primary Care Provider [phone] Encounter Details Date Type Department Care Team (Late st Contact Info) Description 01/20/2025 Lab Requisition [facility] - [facility] Lab [address] [facility] [place] [address] Walt Lang MD [address] [place] [address] [address] [place], [phone] Essential (primary) hypertension; Type 2 diabetes [...] V28) documented in this encounter Care Teams Filing Or Registry Clerk Relationship Specialty Start Date End Date Ac Garcia MD [address] [place] [phone] PCP - General Internal Medicine 01/20/25 documented as of this encounter
--- OUTSIDE RECORDS SUMMARY | 2025-10-10 10:54 | XMS_ITS | Encounter Summary ---
Author Organization [facility] Address [address] [place] [address] Care Team Providers Care Customer Sales Specialist Name Role Phone Ac Garcia MD Primary Care Provider Encounter Details Date Type Department Care Team (Late st Contact Info) Description 09/23/2024 Lab Requisition [facility] - Main Lab [address] [facility] [place] [address] Walt Lang MD [address] [facility] [address] [place], [phone] Type 2 diabetes mellitus without complications [...] K/mcL LAB HEMETOLOGY METHOD 09/24/2024 11:44 AM [facility] RBC 3.80(L) 4.50 - 5.50 M/mcL LAB HEMETOLOGY METHOD 09/24/2024 11:44 AM [facility] Hemoglobin 11.9(L) 13.5 - 17.5 g/dL LAB HEMETOLOGY METHOD 09/24/2024 11:44 AM [facility] Hematocrit 36.3(L) 42.0 - 54.0 % LAB HEMETOLOGY METHOD 09/24/2024 11:44 AM [facility] MCV 95.0 79.0 - 98.0 FL LAB HEMETOLOGY METHOD 09/24/2024 11:44 AM [facility] MCH 31.2 27.0 - 32.0 pcg LAB HEMETOLOGY METHOD 09/24/2024 11:44 AM [facility] MCHC 32.8 32.0 - 37.0 g/dL LAB HEMETOLOGY METHOD 09/24/2024 11:44 AM [facility] RDW 14.5 11.0 - 15.0 % LAB HEMETOLOGY METHOD 09/24/2024 11:44 AM [facility] Platelets 457(H) 130 - 400 K/mcL LAB HEMETOLOGY METHOD 09/24/2024 11:44 AM [facility] MPV 10.2 7.0 - 11.0 FL LAB HEMETOLOGY METHOD 09/24/2024 11:44 AM [facility] NRBC 0.0 <1.0 % LAB HEMETOLOGY METHOD 09/24/2024 11:44 AM [facility] NRBC Absolute 0.00 <0.10 K/mcL LAB HEMETOLOGY METHOD 09/24/2024 11:44 AM [facility] Neutrophils Relative 66.7 % LAB HEMETOLOGY METHOD 09/24/2024 11:44 AM [facility] Lymphocytes Relative 14.9 % LAB HEMETOLOGY METHOD 09/24/2024 11:44 AM [facility] Monocytes Relative 12.6 % LAB HEMETOLOGY METHOD 09/24/2024 11:44 AM [facility] Eosinophils Relative 4.0 % LAB HEMETOLOGY METHOD 09/24/2024 11:44 AM [facility] Basophils Relative 1.3 % LAB HEMETOLOGY METHOD 09/24/2024 11:44 AM [facility] Immature Granulocytes Relative 0.5 % LAB HEMETOLOGY METHOD 09/24/2024 11:44 AM [facility] Neutrophils Absolute 4.17 1.50 - 7.00 K/mcL LAB HEMETOLOGY METHOD 09/24/2024 11:44 AM [facility] Lymphocytes Absolute 0.93(L) 1.00 - 5.00 K/mcL LAB HEMETOLOGY METHOD 09/24/2024 11:44 AM [facility] Monocytes Absolute 0.79 0.20 - 1.00 K/mcL LAB HEMETOLOGY METHOD 09/24/2024 11:44 AM [facility] Eosinophils Absolute 0.25 0.00 - 0.50 K/mcL LAB HEMETOLOGY METHOD 09/24/2024 11:44 AM [facility] Basophils Absolute 0.08 0.00 - 0.20 K/mcL LAB HEMETOLOGY METHOD 09/24/2024 11:44 AM EST [facility] Immature Granulocytes Absolute 0.03 0.00 - 0.03 K/mcL LAB HEMETOLOGY METHOD 09/24/2024 11:44 AM EST [facility] Blood Venous blood specimen / Unknown Venipuncture / Unknown 09/24/2024 6:37 AM EST 09/24/2024 10:28 AM EST Walt Lang MD LAB BLOOD ORDERABLES Final Resul t Performing Organization Address [facility]/ZIP Co de Phone Number [facility] [address] [place] [address], [place] [phone] * (ABNORMAL) Hemoglobin A1c (09/24/2024 6:37 AM EST) Hemoglobin A1C 7.7(H) <6.5 % LAB CHEMISTRY METHOD 09/24/2024 2:26 PM EST [facility] Mean Bld Glu Estim. 174 mg/dL LAB CHEMISTRY METHOD 09/24/2024 2:26 PM EST [facility] Blood Venous blood specimen / Unknown Venipuncture / Unknown 09/24/2024 6:37 AM EST 09/24/2024 10:28 AM EST us Walt Lang MD LAB BLOOD ORDERABLES Final Resul t Performing Organization Address [facility]/ZIP Co de Phone Number [facility] [address] [place] [address], [place] [phone] * (ABNORMAL) Lipid panel with reflex to direct LDL (09/24/2024 6:37 AM EST) Cholesterol 287(H) 0 - 200 mg/dL LAB CHEMISTRY METHOD 09/24/2024 12:46 PM EST [facility] Triglycerides 197(H) 0 - 150 mg/dL LAB CHEMISTRY METHOD 09/24/2024 12:46 PM EST [facility] HDL 56 >=40 mg/dL LAB CHEMISTRY METHOD 09/24/2024 12:46 PM [facility] LDL Calculated 192(H) 0 - 100 mg/dL LAB CHEMISTRY METHOD 09/24/2024 12:46 PM [facility] VLDL Cholesterol Patel 39.4 mg/dL LAB CHEMISTRY METHOD 09/24/2024 12:46 PM [facility] Non HDL Chol. (LDL+VLDL) 231(H) <145 mg/dL LAB CHEMISTRY METHOD 09/24/2024 12:46 PM [facility] Chol/HDL Ratio 5.1(H) 0.0 - 4.4 LAB CHEMISTRY METHOD 09/24/2024 12:46 PM [facility] Blood Venous blood specimen / Unknown Venipuncture / Unknown 09/24/2024 6:37 AM EST 09/24/2024 10:28 AM EST us Walt Lang MD LAB BLOOD ORDERABLES Final Resul t [facility] [address] [place] [address], [place] [phone] * (ABNORMAL) Comprehensive metabolic panel (09/24/2024 6:37 AM EST) Sodium 136 133 - 145 mmol/L LAB CHEMISTRY METHOD 09/24/2024 12:49 PM [facility] Potassium 4.1 3.5 - 5.5 mmol/L LAB CHEMISTRY METHOD 09/24/2024 12:49 PM [facility] Chloride 103 96 - 110 mmol/L LAB CHEMISTRY METHOD 09/24/2024 12:49 PM [facility] CO2 27 21 - 32 mmol/L LAB CHEMISTRY METHOD 09/24/2024 12:49 PM [facility] Anion Gap 6 3 - 11 LAB CHEMISTRY METHOD 09/24/2024 12:49 PM [facility] Glucose 239(H) 70 - 100 mg/dL LAB CHEMISTRY METHOD 09/24/2024 12:49 PM [facility] BUN 13 5 - 25 mg/dL LAB CHEMISTRY METHOD 09/24/2024 12:49 PM [facility] Creatinine 0.37(L) 0.70 - 1.30 mg/dL LAB CHEMISTRY METHOD 09/24/2024 12:49 PM [facility] eGFR 128 >=60 mL/min/1. 73m2 LAB CHEMISTRY METHOD 09/24/2024 12:49 PM [facility] Comment:Calculation based on the Chronic Kidney Disease Epidemiology Collaboration (CKD-EPI) equation refit without adjustment for race. BUN/Creatinine Ratio 35.1 LAB CHEMISTRY METHOD 09/24/2024 12:49 PM [facility] Calcium 8.4(L) 8.5 - 10.5 mg/dL LAB CHEMISTRY METHOD 09/24/2024 12:49 PM [facility] AST (SGOT) 17 10 - 42 unit/L LAB CHEMISTRY METHOD 09/24/2024 12:49 PM [facility] ALT (SGPT) 21 10 - 60 unit/L LAB CHEMISTRY METHOD 09/24/2024 12:49 PM [facility] Alkaline Phosphatase 206(H) 42 - 121 unit/L LAB CHEMISTRY METHOD 09/24/2024 12:49 PM [facility] Total Protein 5.5(L) 6.0 - 8.0 g/dL LAB CHEMISTRY METHOD 09/24/2024 12:49 PM [facility] Albumin 2.3(L) 3.2 - 5.0 g/dL LAB CHEMISTRY METHOD 09/24/2024 12:49 PM [facility] Total Bilirubin 0.3 0.0 - 1.4 mg/dL LAB CHEMISTRY METHOD 09/24/2024 12:49 PM [facility] Blood Venous blood specimen / Unknown Venipuncture / Unknown 09/24/2024 6:37 AM EST 09/24/2024 10:28 AM EST us Walt Lang MD LAB BLOOD ORDERABLES Final Resul t [facility] [address] [place] [address], [place] [phone] documented in this encounter Visit Diagnoses Diagnosis Type 2 diabetes mellitus without complications (CMS/HCC V24, CMS/HCC V28) documented in this encounter Care Teams Customer Sales Specialist Relationship Specialty Start Date End Date Ac Garcia MD [address] [place] [phone] PCP - General Internal Medicine 01/20/25 documented as of this encounter
[2025-10-10 11:01] LABS: MANUAL DIFF FLAG NO
[2025-10-10 11:02] LABS: Hematocrit 37.1 % (42.0-52.0); Hemoglobin 12.3 g/dl (14.0-18.0); Imm Gran Abs Auto 0.01 X10*3/uL (0.00-0.03); Imm Gran Pct Auto 0.2 % (0.0-0.4); Lymphocytes Absolute Auto 1.3 X10*3/uL (1.2-4.9); Mean Corpuscular HGB Conc 33.2 g/dl (31.0-36.0); Mean Corpuscular Hemoglobin 30.7 pg (27.0-33.0); Mean Corpuscular Volume 92.5 fL (80.0-98.0); NRBC Abs Auto 0.000 X10*3/uL (0.0-0.012); NRBC Pct Auto 0.0 /100WBC (0.0-0.2); Platelet Count 238 X10*3/uL (160-400); Red Blood Count 4.01 X10*6/uL (4.60-5.80); White Blood Count 5.9 X10*3/uL (4.8-10.8)
[2025-10-10 11:15] LABS: D Dimer High Sensitivity 792 NG/ML
[2025-10-10 11:27] LABS: Alanine Aminotransferase 21 U/L (0-40); Albumin Level 2.6 g/dL (3.5-5.0); Alkaline Phosphatase 143 U/L (39-117); Anion Gap 9 (12-20); Aspartate Amino Transferase 27 U/L (5-37); Blood Urea Nitrogen 36 mg/dL (9-16); Calcium 8.2 mg/dL (8.4-10.2); Carbon Dioxide 25 mmol/L (22-29); Chloride 108 mmol/L (96-108); Creatinine Clr Calc Pharmacy 60.7; Estimated Glomerular Filt Rate > 60; Potassium 4.7 mmol/L (3.3-5.1); Sodium 137 mmol/L (135-145); Total Protein 5.2 g/dL (6.5-8.0)
[2025-10-10 11:34] LABS: Troponin-I High Sensitivity 37.3 ng/L (<3.5-35.0)
[2025-10-10] MEDS: iohexoL 350 MG/ML 100 ML INFUS..BTL IV (14:00)
[2025-10-10] MEDS: Furosemide 40 MG/4 ML VIAL IVPUSH (14:41)
--- NOTE | 2025-10-10 14:54 | PC.NURSE ---
Pt using the bedside urinal, 1000ML out. Pt reporting no SOB/CP at this time, pt breathing noted to be even and unlabored at this time. [place] and juice given to pt at this time
[2025-10-10 15:00] LABS: Troponin-I High Sensitivity 35.9 ng/L (<3.5-35.0)
--- NOTE | 2025-10-10 16:42 | PC.NURSE ---
Report called and given to Alejandro COELLO at [facility] for pt to return. IV removed at this time, pt currently using urinal and will have staff assist to finish getting dressed.
== END 2025-10-10 18:38 | disposition swing bed (61) ==
PROVIDERS: Emergency Provider Emergency Medicine; PCP Family Medicine
DX: R07.89 Other chest pain (principal); R06.02 Shortness of breath; E11.9 Type 2 diabetes mellitus without complications; Z79.899 Other long term (current) drug therapy; Z79.4 Long term (current) use of insulin; F17.210 Nicotine dependence, cigarettes, uncomplicated
CPT/HCPCS: 36415; 71045; 71275; 80053; 83880; 84484; 85025; 85379; 93005; 96374; 99285; J1938; Q9967

== ENCOUNTER → 2025-10-10 10:25 | Outpatient (BNV) | payer MEDICARE, MEDICAID, SELFPAY | PROVIDERS: Emergency Provider Emergency Medicine; PCP Family Medicine; Visit Provider Internal Medicine | DX: R94.31 Abnormal electrocardiogram [ECG] [EKG] (principal); R07.9 Chest pain, unspecified | CPT/HCPCS: 93010 ==

== ENCOUNTER → 2025-10-10 10:33 | Outpatient (BNV) | payer MEDICARE, MEDICAID, SELFPAY | PROVIDERS: Emergency Provider Emergency Medicine; PCP Family Medicine; Visit Provider Radiology Diagnostic Radiology | DX: Z03.89 Encounter for observation for other suspected diseases and conditions ruled out (principal); R91.8 Other nonspecific abnormal finding of lung field | CPT/HCPCS: 71045; 71275 ==